=== PATIENT | male | born 1980 | race Caucasian/White ===

== ENCOUNTER 2016-10-22 10:54 | Inpatient (IN) | payer MEDICAID ==
[2016-10-22 12:07] LABS: Hematocrit 45 % (42-52); Hemoglobin 15.6 g/dl (14.0-18.0); Mean Corpuscular HGB Conc 35 g/dl (31-36); Mean Corpuscular Hemoglobin 34 pg (27-31); Mean Corpuscular Volume 98 fL (80-94); Mean Platelet Volume 8 um3 (7.4-10.4); Red Blood Count 4.58 10^6/ul (4.0-5.4); Red Cell Distribution Width 12 % (10.5-15); White Blood Count 3.7 10^3/ul (3.5-10.8)
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
[2016-10-22 12:26] LABS: ALT 238 U/L (7-52); AST 341 U/L (13-39); Albumin 4.2 g/dL (3.2-5.2); Alkaline Phosphatase 149 U/L (34-104); Anion Gap 11 mmol/L (2-11); BUN/Creatinine Ratio 11.8 (8-20); Blood Urea Nitrogen 6 mg/dL (6-24); CO2 Carbon Dioxide 24 mmol/L (22-32); Calcium 9.1 mg/dL (8.6-10.3); Chloride 102 mmol/L (101-111); EGFR African American 239.3 (>60); Globulin 3.1 g/dL (2-4); Glucose 106 mg/dL (70-100); Potassium 3.7 mmol/L (3.5-5.0); Sodium 137 mmol/L (133-145); Total Protein 7.3 g/dL (6.4-8.9)
[2016-10-22 12:48] LABS: Acetaminophen < 15 mcg/mL; Alcohol 256 mg/dL (<10); Salicylate < 2.50 mg/dL (<30)
[2016-10-22 12:58] LABS: TSH (Thyroid Stimulating Horm) 4.63 mcIU/mL (0.34-5.60)
[2016-10-22 16:10] LABS: Vitamin B12 640 pg/mL (180-914)
[2016-10-22] MEDS ORDERED: chlorproMAZINE TAB* 100 MG PO PRN (22:25)
[2016-10-22] MEDS ORDERED: Al Hydrox/Mg Hydrox/Simet LIQ* 30 ML UDC PO PRN (22:26)
[2016-10-22] MEDS ORDERED: Acetaminophen TAB* 325 MG PO PRN (22:26)
[2016-10-23] MEDS: Vitamin THERAPEUTIC TAB PO SCH (09:44)
[2016-10-23] MEDS: Folic Acid TAB* 1 MG PO SCH (09:44)
[2016-10-23] MEDS: Thiamine TAB* 100 MG TAB PO SCH (09:44)
[2016-10-23] MEDS ORDERED: LORazepam IM* PER WAM PARAMETERS IM SCH (16:00)
[2016-10-23] MEDS ORDERED: LORazepam TAB(*) WAM SCALE 0-6 MG PO SCH (16:00)
[2016-10-24] MEDS: Folic Acid TAB* 1 MG PO SCH (09:22)
[2016-10-24] MEDS: Vitamin THERAPEUTIC TAB PO SCH (09:22)
[2016-10-24] MEDS: Thiamine TAB* 100 MG TAB PO SCH (09:22)
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
[2016-10-25 00:46] LABS: Whole Blood Vitamin B1 Level 144 nmol/L (70-180)
[2016-10-25] MEDS: Folic Acid TAB* 1 MG PO SCH (09:37)
[2016-10-25] MEDS: Vitamin THERAPEUTIC TAB PO SCH (09:37)
[2016-10-25] MEDS: Thiamine TAB* 100 MG TAB PO SCH (09:37)
--- NOTE | 2016-10-25 11:09 | PN ---
Subjective - Subjective Service Type: 16280 [facility] care 15 min low complexity Subjective: Spoke with SW, Socorro Guadalupe, who in turn had communication with the patient's family. They are alleging a number of concerns including the presence of guns, knives and a fashioned rope noose at Julians house, which is also described to be essentially uninhabitable due to squalor and stench. The patient came to stay at his parents back in September due to his own complaints of physical weakness and the unsafe conditions of his home. They also described the patient being up all night, often screaming at the television with apparent ideas of reference, and sleeping during the day. They found several large, empty alcohol bottles in his room, and indicate that he will go days without eating anything other than some page tomatoes. He will often complain to them about bloody dreams and nightmares, which he describes to them in vivid, frightening detail. He has made allegations that computer hackers are persecuting him and tampering with his home and car. They found blood in his bathroom that he could not explain. The patient's financial statements, which are available as he is dependent on his father, show that he purchases alcohol frequently. He continues to have extensive delusions about a girlfriend with whom he broke up with over 4 years ago. An example of his incapacity, according to family, is that he has no refrigerator in his house, insisting that he's waiting for the ex-girlfriend to pick a color for the appliance. When confronted about these accounts the patient is defensive, interuptive and argumentative, showing no insight into his own functional limitations or the severity of his situation. "They're lying about me. I'll never forgive them!" He remains hyperverbal and hypergraphic, dishevelled and undernourished. Objective - Appearance Appearance: Thin Framed Dysmorphic Features: No Hygiene: Normal Grooming: Disheveled - Behavior Psychomotor Activities: Normal Exhibits Abnormal Movement: No - Attitude and Relatedness Attitude and Relatedness: Psychotically Related Eye Contact: Good - Speech Quality: Pressured Latencies: Short Quantity: Copious - Mood Patient's Decription of Mood: "Sad" - Affect Observed Affect: Labile Affect Consistent with: Dysphoria - Thought Process Patient's Thought Process: Tangential Thought Content: Yes Paranoid Ideation, No Passive Wish, No Suicidal Planning, No Homicidal Ideation - Sensorium Experiencing Hallucinations: No, Sensorium is Clear Type of Hallucinations: Visual: No, Auditory: No, Command: No - Level of Consciousness Level of Consciousness: Agitated Orientation: Yes Intact, Yes Orientated to Time, Yes Orientated to Place, Yes Orientated to Person - Impulse Control Impulse Control: Poor - Insight and Judgement Insight and Judgement: Impaired - Group Participation Particating in Group Activities: No - Medication Management Medication Management Adherence: No Assessment - Assessment Merits Inpatient Hospitalization: For Immediate Safety, For Stabilization Inpatient DSM-IV Dx: Unspecified Psychotic DO Clinical Impression: 35 y.o. single, white male with a history of psychosis and affective problems who arrives via EMS after his parents called 911 due to his paranoia, agitation and significant lack of self care. Plan - Plan Treatment Plan: Name: David HOPE Birthdate: 1980 [id number] The patient is refusing to consider antipsychotic medication. We will invite the family to come in for a family meeting and see if confrontation can't improve his insight and judgment related to accepting treatment. Continued Medication Management: Consider Medication Medications: Current Medications Acetaminophen (Tylenol Tab*) 650 mg PO Q4H PRN PRN Reason: PAIN Al Hydrox/Mg Hydrox/Simethicone (Maalox Plus*) 30 ml PO Q2H PRN PRN Reason: GASTRIC DISTRESS Chlorpromazine HCl (Thorazine Tab*) 100 mg PO Q2H PRN PRN Reason: AGITAION Folic Acid (Folvite Tab*) 1 mg PO DAILY [facility] Last Admin: 10/25/16 09:37 Dose: Not Given Lorazepam (Ativan Inj*) 0 - 6 mg IM .PER [facility] PRN Reason: Protocol Lorazepam (Ativan Tab(*)) 0 - 6 mg PO .[facility] PRN Reason: Protocol Multivitamins (Theragran Tab*) 1 tab PO DAILY [facility] Last Admin: 10/25/16 09:37 Dose: Not Given Thiamine HCl (Vitamin B-1 Tab*) 100 mg PO DAILY [facility] Last Admin: 10/25/16 09:37 Dose: Not Given - Discharge Plan Discharge Plan: Inpatient Hospitalization
[2016-10-26] MEDS: Vitamin THERAPEUTIC TAB PO SCH (10:07)
[2016-10-26] MEDS: Thiamine TAB* 100 MG TAB PO SCH (10:07)
[2016-10-26] MEDS: Folic Acid TAB* 1 MG PO SCH (10:07)
--- NOTE | 2016-10-26 13:34 | PN ---
Subjective - Subjective Service Type: 66058 [facility] care 15 min low complexity Subjective: I reviewed Dr Urias's H&P and sign out. I reviewed staff notes since Friday afternoon. He slept 5+ hrs last night. Staff note selective eating, poor attention to hygiene, and he has been refusing medications. He had a difficult time briefly reviewing events leading to hospitalization. He talked about "proximate and ultimate" causes and went into a lengthy review of events related to living with his parents for the last 6 weeks. His visit was extended due to being "snowed in," feeling sick, and struggling with mental health issues (down mood). Unprompted, he repeatedly talks about the amount of cooking he did while living with them. He notes being "polite but honest" with them and expressing frustrations by yelling to them in the middle of the night after having "one bad day" (due to down mood, poor sleep). He acknowledges that his views may have been expressed in an "inappropriate" way. He feels "blindsided" by list of concerns parents recently reviewed with him. He describes a past dx of cyclothymia and having "intense reactions." He believes his parents have "over reacted" and have been lying to Dr Urias. Today his mood is "bored" but he is "adjusting." He denies acute depression or anxiety. He reports "the best" sleep last night. He ate breakfast and lunch. He denies physical complaints. He denies symptoms of psychosis. He denies SI or thoughts of self-harm. He denies thoughts of harming others. He expressed frustration about hospitalization. Objective - Appearance Appearance: Thin Framed - long hair and jesus. Dysmorphic Features: No Grooming: Disheveled - Behavior Psychomotor Activities: Abnormal-Increased - appears tremulous Exhibits Abnormal Movement: No - Attitude and Relatedness Attitude and Relatedness: Needy Eye Contact: Good - Speech Quality: Pressured Latencies: Short Quantity: Copious - Mood Patient's Decription of Mood: "Fine" - Affect Observed Affect: Fair Affect Consistent with: Dysphoria - blunted - Thought Process Patient's Thought Process: Tangential, Over Inclusive - mild disorganization Thought Content: Yes Paranoid Ideation, No Passive Wish, No Suicidal Planning, No Homicidal Ideation - Sensorium Experiencing Hallucinations: No, Sensorium is Clear - Level of Consciousness Level of Consciousness: Alert - Impulse Control Impulse Control: Tenuous - Insight and Judgement Insight and Judgement: Poor - Medication Management Medication Management Adherence: No Assessment - Assessment Merits Inpatient Hospitalization: Diagnosis Determination, To Initiate Treatment , For Ongoing Evaluation, Consolidate Improvements, For Discharge Planning, Pending Safe DC Plan Inpatient DSM-IV Dx: Unspecified Psychotic DO. Alcohol use d/o Clinical Impression: 35yo male with a hx of psychosis, alcohol use d/o admitted due to acute psychosis and poor self-care. To continue to monitor. Plan - Plan Treatment Plan: Name: David HOPE Birthdate: 1980 [id number] - to continue WAM. To consider d/cing if he doesn't receive any Ativan in the next 24 hrs. - to continue to monitor Medications: Current Medications Acetaminophen (Tylenol Tab*) 650 mg PO Q4H PRN PRN Reason: PAIN Al Hydrox/Mg Hydrox/Simethicone (Maalox Plus*) 30 ml PO Q2H PRN PRN Reason: GASTRIC DISTRESS Chlorpromazine HCl (Thorazine Tab*) 100 mg PO Q2H PRN PRN Reason: AGITAION Folic Acid (Folvite Tab*) 1 mg PO DAILY [facility] Last Admin: 10/26/16 10:07 Dose: Not Given Lorazepam (Ativan Inj*) 0 - 6 mg IM .PER [facility] PRN Reason: Protocol Lorazepam (Ativan Tab(*)) 0 - 6 mg PO .PER [facility] PRN Reason: Protocol Multivitamins (Theragran Tab*) 1 tab PO DAILY [facility] Last Admin: 10/26/16 10:07 Dose: Not Given Thiamine HCl (Vitamin B-1 Tab*) 100 mg PO DAILY [facility] Last Admin: 10/26/16 10:07 Dose: Not Given
[2016-10-27] MEDS: Thiamine TAB* 100 MG TAB PO SCH (09:53)
[2016-10-27] MEDS: Folic Acid TAB* 1 MG PO SCH (09:53)
[2016-10-27] MEDS: Vitamin THERAPEUTIC TAB PO SCH (09:54)
[2016-10-28] MEDS: Thiamine TAB* 100 MG TAB PO SCH (10:50)
[2016-10-28] MEDS: Folic Acid TAB* 1 MG PO SCH (10:50)
[2016-10-28] MEDS: Vitamin THERAPEUTIC TAB PO SCH (10:50)
--- NOTE | 2016-10-28 12:02 | PN ---
[facility]: Group Therapy Note - Service Type Service Type: 63909 Group Psychotherapy - Cognitive Behavioral Group Therapy ( CBT):Patient was attentive and participatory in CBT programming this morning, and remained in good behavioral control. Patient expressed positive insights regarding relevant treatment interventions and goals.
--- NOTE | 2016-10-28 14:53 | PN ---
Subjective - Subjective Service Type: [id number] Hosp care 15 min low complexity Subjective: Patient continues to be hyperverbal and argumentative, attempting to justify the bizarre condition of his apartment and his abnormal behaviors as extensions of his "artistic" persona. He is frequently observed talking to unseen people and I can hear him in his room talking to himself. The patient refuses to consider neuroleptic therapy, stating that his parents are "the crazy ones." Objective - Appearance Appearance: Thin Framed Dysmorphic Features: No Hygiene: Normal Grooming: Fairly Well Kept - Behavior Psychomotor Activities: Normal Exhibits Abnormal Movement: No - Attitude and Relatedness Attitude and Relatedness: Psychotically Related Eye Contact: Good - Speech Quality: Pressured Latencies: Short Quantity: Copious - Mood Patient's Decription of Mood: "Fine" - Affect Observed Affect: Tense Affect Consistent with: Dysphoria - Thought Process Patient's Thought Process: Tangential Thought Content: Yes Paranoid Ideation, No Passive Wish, No Suicidal Planning, No Homicidal Ideation - Sensorium Experiencing Hallucinations: Yes Type of Hallucinations: Visual: No, Auditory: Yes, Command: No - Level of Consciousness Level of Consciousness: Alert Orientation: Yes Intact, Yes Orientated to Time, Yes Orientated to Place, Yes Orientated to Person - Impulse Control Impulse Control: Poor - Insight and Judgement Insight and Judgement: Impaired - Group Participation Particating in Group Activities: Yes - Medication Management Medication Management Adherence: No Assessment - Assessment Merits Inpatient Hospitalization: For Immediate Safety, For Stabilization Inpatient DSM-IV Dx: Unspecified Psychotic DO. Alcohol use d/o Clinical Impression: 35 y.o. single, white male with a history of psychosis and affective problems who arrives via EMS after his parents called 911 due to his paranoia, agitation and significant lack of self care. Plan - Plan Treatment Plan: Name: David HOPE Birthdate: 1980 [id number] The patient is still refusing to consider antipsychotic medication. His family has brought pictures of his apartment displaying various homicidal and suicidal statements scrawled in marker, paint and even blood. We will initiate risperidone 1mg PO qhs and pursue TOO. Continued Medication Management: Start Medication Medications: Current Medications Acetaminophen (Tylenol Tab*) 650 mg PO Q4H PRN PRN Reason: PAIN Al Hydrox/Mg Hydrox/Simethicone (Maalox Plus*) 30 ml PO Q2H PRN PRN Reason: GASTRIC DISTRESS Chlorpromazine HCl (Thorazine Tab*) 100 mg PO Q2H PRN PRN Reason: AGITAION Folic Acid (Folvite Tab*) 1 mg PO DAILY [facility] Last Admin: 10/28/16 10:50 Dose: Not Given Multivitamins (Theragran Tab*) 1 tab PO DAILY [facility] Last Admin: 10/28/16 10:50 Dose: Not Given Risperidone (Risperdal*) 1 mg PO BEDTIME [facility] Thiamine HCl (Vitamin B-1 Tab*) 100 mg PO DAILY [facility] Last Admin: 10/28/16 10:50 Dose: Not Given - Discharge Plan Discharge Plan: Inpatient Hospitalization
[2016-10-28] MEDS: risperiDONE TAB* 1 MG PO SCH (23:53)
[2016-10-29] MEDS: Thiamine TAB* 100 MG TAB PO SCH (10:40)
[2016-10-29] MEDS: Vitamin THERAPEUTIC TAB PO SCH (10:40)
[2016-10-29] MEDS: Folic Acid TAB* 1 MG PO SCH (10:40)
--- NOTE | 2016-10-29 11:03 | PN ---
Subjective - Subjective Service Type: 57310 Hosp care 15 min low complexity Subjective: The patient continues with rambling, abstract speech about what seem like irrelevant topic to me, such as forest ecology and his relationship with a former girlfriend, whom he remains delusional about. The patient is refusing meds and minimizes the concerns of his family. I do notify him that the team has decided to take him to court but he insists the photos of his house are inadmissable because his family did not have a warrant when they took them. The team received a phone call from Raul's mother alerting us to his frequent headaches prior to admission, however, the patient denies this and refuses the offer of neuroimaging. Objective - Appearance Appearance: Thin Framed Dysmorphic Features: No Hygiene: Normal Grooming: Fairly Well Kept - Behavior Psychomotor Activities: Normal Exhibits Abnormal Movement: No - Attitude and Relatedness Attitude and Relatedness: Psychotically Related Eye Contact: Good - Speech Quality: Pressured Latencies: Short Quantity: Copious - Mood Patient's Decription of Mood: "Fine" - Affect Observed Affect: Tense Affect Consistent with: Dysphoria - Thought Process Patient's Thought Process: Tangential Thought Content: Yes Paranoid Ideation, No Passive Wish, No Suicidal Planning, No Homicidal Ideation - Sensorium Experiencing Hallucinations: Yes Type of Hallucinations: Visual: No, Auditory: Yes, Command: No - Level of Consciousness Level of Consciousness: Alert Orientation: Yes Intact, Yes Orientated to Time, Yes Orientated to Place, Yes Orientated to Person - Impulse Control Impulse Control: Poor - Insight and Judgement Insight and Judgement: Impaired - Group Participation Particating in Group Activities: Yes - Medication Management Medication Management Adherence: No Assessment - Assessment Merits Inpatient Hospitalization: For Immediate Safety, For Stabilization Inpatient DSM-IV Dx: Unspecified Psychotic DO. Alcohol use d/o Clinical Impression: 35 y.o. single, white male with a history of psychosis and affective problems who arrives via EMS after his parents called 911 due to his paranoia, agitation and significant lack of self care. Plan - Plan Treatment Plan: Name: David HOPE Birthdate: 1980 [id number] The patient is refusing antipsychotic meds despite the indications that he is psychotic and unable to function safely in the community. We have initiated the process to seek T.O.O. and the patient is now aware of this. Medications: Current Medications Acetaminophen (Tylenol Tab*) 650 mg PO Q4H PRN PRN Reason: PAIN Al Hydrox/Mg Hydrox/Simethicone (Maalox Plus*) 30 ml PO Q2H PRN PRN Reason: GASTRIC DISTRESS Chlorpromazine HCl (Thorazine Tab*) 100 mg PO Q2H PRN PRN Reason: AGITAION Folic Acid (Folvite Tab*) 1 mg PO DAILY [facility] Last Admin: 10/29/16 10:40 Dose: Not Given Multivitamins (Theragran Tab*) 1 tab PO DAILY [facility] Last Admin: 10/29/16 10:40 Dose: Not Given Risperidone (Risperdal*) 1 mg PO BEDTIME [facility] Last Admin: 10/28/16 23:53 Dose: Not Given Thiamine HCl (Vitamin B-1 Tab*) 100 mg PO DAILY [facility] Last Admin: 10/29/16 10:40 Dose: Not Given
--- NOTE | 2016-10-29 13:44 | PN ---
MHU: Group Therapy Note - Service Type Service Type: [id number] Group Psychotherapy - Cognitive Behavioral Group Therapy ( CBT):Patient was attentive and participatory in CBT programming this morning, and remained in good behavioral control. Patient expressed positive insights regarding relevant treatment interventions and goals.
[2016-10-29] MEDS: risperiDONE TAB* 1 MG PO SCH (20:17)
[2016-10-30] MEDS: Folic Acid TAB* 1 MG PO SCH (08:07)
[2016-10-30] MEDS: Thiamine TAB* 100 MG TAB PO SCH (08:07)
[2016-10-30] MEDS: Vitamin THERAPEUTIC TAB PO SCH (08:07)
--- NOTE | 2016-10-30 11:50 | PN ---
MHU: Group Therapy Note - Service Type Service Type: [id number] Group Psychotherapy - Cognitive Behavioral Group Therapy ( CBT):Patient was attentive and participatory in CBT programming this morning, and remained in good behavioral control. Patient expressed positive insights regarding relevant treatment interventions and goals.
--- NOTE | 2016-10-30 13:43 | PN ---
Subjective - Subjective Service Type: 25316 Hosp care 35 min high complexity Subjective: The patient speaks at length today about his philosophical and aesthetic attitudes about taking psychotropic medications and makes references to several abstract concepts such as creationism versus darwinism. The thrust of his argument is that obligating him to take medications against his will, as through a court proceeding, would be analogous to some sort of forced mu-ism conversion, like, say, from atheism to Gnosticist. He does not deny that he is suffering and has functional impairment, but feels that these attributes are unique to himself and an antipsychotic medication would be inconsistent with his world view. He assures me that he is neither an acute harm to himself nor his family and minimizes the disturbing suicidal and homicidal statements scrawled on the merchant of his home. The patient continues to be observed talking to himself. Objective - Appearance Appearance: Thin Framed Dysmorphic Features: No Hygiene: Normal Grooming: Fairly Well Kept - Behavior Psychomotor Activities: Normal Exhibits Abnormal Movement: No - Attitude and Relatedness Attitude and Relatedness: Argumentative Eye Contact: Good - Speech Quality: Pressured Latencies: Short Quantity: Copious - Mood Patient's Decription of Mood: "Upset" - Affect Observed Affect: Constricted Affect Consistent with: Dysphoria - Thought Process Patient's Thought Process: Tangential Thought Content: Yes Paranoid Ideation, No Passive Wish, No Suicidal Planning, No Homicidal Ideation - Sensorium Experiencing Hallucinations: Yes Type of Hallucinations: Visual: No, Auditory: Yes, Command: No - Level of Consciousness Level of Consciousness: Alert Orientation: Yes Intact, Yes Orientated to Time, Yes Orientated to Place, Yes Orientated to Person - Impulse Control Impulse Control: Poor - Insight and Judgement Insight and Judgement: Impaired - Group Participation Particating in Group Activities: Yes - Medication Management Medication Management Adherence: No Assessment - Assessment Merits Inpatient Hospitalization: For Immediate Safety, For Stabilization Inpatient DSM-IV Dx: Unspecified Psychotic DO. Alcohol use d/o Clinical Impression: 35 y.o. single, white male with a history of psychosis and affective problems who arrives via EMS after his parents called 911 due to his paranoia, agitation and significant lack of self care. Plan - Plan Treatment Plan: Name: David HOPE Birthdate: 1980 [id number] The patient is refusing antipsychotic meds despite the indications that he is psychotic and unable to function safely in the community. We have initiated the process to seek T.O.O. and await a scheduled court date. Continued Medication Management: Start Medication Medications: Current Medications Acetaminophen (Tylenol Tab*) 650 mg PO Q4H PRN PRN Reason: PAIN Al Hydrox/Mg Hydrox/Simethicone (Maalox Plus*) 30 ml PO Q2H PRN PRN Reason: GASTRIC DISTRESS Chlorpromazine HCl (Thorazine Tab*) 100 mg PO Q2H PRN PRN Reason: AGITAION Folic Acid (Folvite Tab*) 1 mg PO DAILY [facility] Last Admin: 10/30/16 08:07 Dose: Not Given Multivitamins (Theragran Tab*) 1 tab PO DAILY [facility] Last Admin: 10/30/16 08:07 Dose: Not Given Risperidone (Risperdal*) 1 mg PO BEDTIME [facility] Last Admin: 10/29/16 20:17 Dose: Not Given Thiamine HCl (Vitamin B-1 Tab*) 100 mg PO DAILY [facility] Last Admin: 10/30/16 08:07 Dose: Not Given - Discharge Plan Discharge Plan: Inpatient Hospitalization
[2016-10-30] MEDS: risperiDONE TAB* 1 MG PO SCH (23:25)
[2016-10-31] MEDS: Folic Acid TAB* 1 MG PO SCH (09:59)
[2016-10-31] MEDS: Thiamine TAB* 100 MG TAB PO SCH (09:59)
[2016-10-31] MEDS: Vitamin THERAPEUTIC TAB PO SCH (10:00)
--- NOTE | 2016-10-31 10:33 | PN ---
Subjective - Subjective Service Type: [id number] Hosp care 15 min low complexity Subjective: Raul remains non-adherent with treatment and uninsightful. He continues to be observed responding to internal stimuli, talking and laughing to himself. Both his speech, and the scrawlings in his journal, are rambling and overproductive. Today the patient presents as hyperverbal and it is difficult to disengage with him after absorbing his long dissertation on why he is not appropriate for involuntary psychiatric treatment. Objective - Appearance Appearance: Thin Framed Dysmorphic Features: No Hygiene: Normal Grooming: Disheveled - Behavior Psychomotor Activities: Normal Exhibits Abnormal Movement: No - Attitude and Relatedness Attitude and Relatedness: Argumentative Eye Contact: Poor - Speech Quality: Pressured Latencies: Short Quantity: Copious - Mood Patient's Decription of Mood: "Okay" - Affect Observed Affect: Tense Affect Consistent with: Dysphoria - Thought Process Patient's Thought Process: Tangential Thought Content: Yes Paranoid Ideation, No Passive Wish, No Suicidal Planning, No Homicidal Ideation - Sensorium Experiencing Hallucinations: Yes Type of Hallucinations: Visual: No, Auditory: Yes, Command: No - Level of Consciousness Level of Consciousness: Alert Orientation: Yes Intact, Yes Orientated to Time, Yes Orientated to Place, Yes Orientated to Person - Impulse Control Impulse Control: Poor - Insight and Judgement Insight and Judgement: Impaired - Group Participation Particating in Group Activities: Yes - Medication Management Medication Management Adherence: No Assessment - Assessment Merits Inpatient Hospitalization: For Immediate Safety, For Stabilization Inpatient DSM-IV Dx: Unspecified Psychotic DO. Alcohol use d/o Clinical Impression: 35 y.o. single, white male with a history of psychosis and affective problems who arrives via EMS after his parents called 911 due to his paranoia, agitation and significant lack of self care. Plan - Plan Treatment Plan: Name: Davdi HOPE Birthdate: 1980 [id number] The patient is refusing antipsychotic meds despite the indications that he is psychotic and unable to function safely in the community. We have initiated the process to seek T.O.O. and await a scheduled court date. Continued Medication Management: Start Medication Medications: Current Medications Acetaminophen (Tylenol Tab*) 650 mg PO Q4H PRN PRN Reason: PAIN Al Hydrox/Mg Hydrox/Simethicone (Maalox Plus*) 30 ml PO Q2H PRN PRN Reason: GASTRIC DISTRESS Chlorpromazine HCl (Thorazine Tab*) 100 mg PO Q2H PRN PRN Reason: AGITAION Folic Acid (Folvite Tab*) 1 mg PO DAILY [facility] Last Admin: 10/31/16 09:59 Dose: Not Given Multivitamins (Theragran Tab*) 1 tab PO DAILY [facility] Last Admin: 10/31/16 10:00 Dose: Not Given Risperidone (Risperdal*) 1 mg PO BEDTIME [facility] Last Admin: 10/30/16 23:25 Dose: Not Given Thiamine HCl (Vitamin B-1 Tab*) 100 mg PO DAILY [facility] Last Admin: 10/31/16 09:59 Dose: Not Given - Discharge Plan Discharge Plan: Inpatient Hospitalization
--- NOTE | 2016-10-31 11:52 | PN ---
MHU: Group Therapy Note - Service Type Service Type: [id number] Group Psychotherapy - Cognitive Behavioral Group Therapy ( CBT):Patient was attentive and participatory in CBT programming this morning, and remained in good behavioral control. Patient expressed positive insights regarding relevant treatment interventions and goals.
[2016-10-31] MEDS: risperiDONE TAB* 1 MG PO SCH (20:56)
[2016-11-01] MEDS: Folic Acid TAB* 1 MG PO SCH (10:37)
[2016-11-01] MEDS: Vitamin THERAPEUTIC TAB PO SCH (10:37)
[2016-11-01] MEDS: Thiamine TAB* 100 MG TAB PO SCH (10:37)
--- NOTE | 2016-11-01 14:12 | PN ---
Subjective - Subjective Service Type: [id number] Hosp care 25 min moderate complexity Subjective: The patient continues today with his verbose, intellectualized, pleading arguments against forced antipsychotic treatment. He is hyperverbal and frequently interupts me during the few times that I do try to raise concerns or contradict something he has said. The patient is still observed talking and laughing to himself on the unit, although he does appear to be eating and drinking well. He has no insight and does not believe he has any mental illness. Objective - Appearance Appearance: Thin Framed Dysmorphic Features: No Hygiene: Normal Grooming: Fairly Well Kept - Behavior Psychomotor Activities: Normal Exhibits Abnormal Movement: No - Attitude and Relatedness Attitude and Relatedness: Argumentative Eye Contact: Fair - Speech Quality: Pressured Latencies: Short Quantity: Copious - Mood Patient's Decription of Mood: "Upset" - Affect Observed Affect: Depressed Affect Consistent with: Dysphoria - Thought Process Patient's Thought Process: Tangential Thought Content: Yes Paranoid Ideation, No Passive Wish, No Suicidal Planning, No Homicidal Ideation - Sensorium Experiencing Hallucinations: Yes Type of Hallucinations: Visual: No, Auditory: Yes, Command: No - Level of Consciousness Level of Consciousness: Alert Orientation: Yes Intact, Yes Orientated to Time, Yes Orientated to Place, Yes Orientated to Person - Impulse Control Impulse Control: Poor - Insight and Judgement Insight and Judgement: Impaired - Group Participation Particating in Group Activities: Yes - Medication Management Medication Management Adherence: No Assessment - Assessment Merits Inpatient Hospitalization: For Immediate Safety, For Stabilization Inpatient DSM-IV Dx: Unspecified Psychotic DO. Alcohol use d/o Clinical Impression: 35 y.o. single, white male with a history of psychosis and affective problems who arrives via EMS after his parents called 911 due to his paranoia, agitation and significant lack of self care. Plan - Plan Treatment Plan: Name: David HOPE Birthdate: 1980 [id number] The patient is refusing antipsychotic meds despite the indications that he is psychotic and unable to function safely in the community. We have initiated the process to seek T.O.O. and await a scheduled court date. Continued Medication Management: Start Medication Medications: Current Medications Acetaminophen (Tylenol Tab*) 650 mg PO Q4H PRN PRN Reason: PAIN Al Hydrox/Mg Hydrox/Simethicone (Maalox Plus*) 30 ml PO Q2H PRN PRN Reason: GASTRIC DISTRESS Chlorpromazine HCl (Thorazine Tab*) 100 mg PO Q2H PRN PRN Reason: AGITAION Folic Acid (Folvite Tab*) 1 mg PO DAILY [facility] Last Admin: 11/01/16 10:37 Dose: Not Given Multivitamins (Theragran Tab*) 1 tab PO DAILY [facility] Last Admin: 11/01/16 10:37 Dose: Not Given Risperidone (Risperdal*) 1 mg PO BEDTIME [facility] Last Admin: 10/31/16 20:56 Dose: Not Given Thiamine HCl (Vitamin B-1 Tab*) 100 mg PO DAILY [facility] Last Admin: 11/01/16 10:37 Dose: Not Given - Discharge Plan Discharge Plan: Inpatient Hospitalization
[2016-11-01] MEDS: risperiDONE TAB* 1 MG PO SCH (20:51)
[2016-11-02] MEDS: Folic Acid TAB* 1 MG PO SCH (10:21)
[2016-11-02] MEDS: Vitamin THERAPEUTIC TAB PO SCH (10:21)
[2016-11-02] MEDS: Thiamine TAB* 100 MG TAB PO SCH (10:21)
[2016-11-02] MEDS: risperiDONE TAB* 1 MG PO SCH (21:33)
[2016-11-03] MEDS: Thiamine TAB* 100 MG TAB PO SCH (11:21)
[2016-11-03] MEDS: Vitamin THERAPEUTIC TAB PO SCH (11:21)
[2016-11-03] MEDS: Folic Acid TAB* 1 MG PO SCH (11:21)
[2016-11-03] MEDS: risperiDONE TAB* 1 MG PO SCH (20:35)
[2016-11-04] MEDS: Vitamin THERAPEUTIC TAB PO SCH (10:09)
[2016-11-04] MEDS: Thiamine TAB* 100 MG TAB PO SCH (10:09)
[2016-11-04] MEDS: Folic Acid TAB* 1 MG PO SCH (10:09)
--- NOTE | 2016-11-04 11:11 | PN ---
MHU: Group Therapy Note - Service Type Service Type: [id number] Group Psychotherapy - Cognitive Behavioral Group Therapy ( CBT):Patient was attentive and participatory in CBT programming this morning, and remained in good behavioral control. Patient expressed positive insights regarding relevant treatment interventions and goals.
--- NOTE | 2016-11-04 11:22 | PN ---
Subjective - Subjective Service Type: [id number] Hosp care 15 min low complexity Subjective: Raul expresses regret over need for court hearing. Says he is not categorically against medication but wants the process to go slowly and prefers to take care if it himself. Objective - Appearance Appearance: Thin Framed Hygiene: Normal Grooming: Disheveled - Behavior Psychomotor Activities: Normal - Attitude and Relatedness Attitude and Relatedness: Guarded - Speech Quality: Unpressured Latencies: Normal Quantity: Appropriate - Mood Patient's Decription of Mood: "Anxious" - Affect Observed Affect: Tense Affect Consistent with: Dysphoria - Thought Process Patient's Thought Process: Over Inclusive Thought Content: No Passive Wish, No Suicidal Planning, No Homicidal Ideation, No Paranoid Ideation - Sensorium Experiencing Hallucinations: No, Sensorium is Clear - Level of Consciousness Level of Consciousness: Alert - Impulse Control Impulse Control: Intact - Insight and Judgement Insight and Judgement: Poor Assessment - Assessment Merits Inpatient Hospitalization: For Immediate Safety, For Stabilization, To Initiate Treatment, For Ongoing Evaluation, Pending Safe DC Plan Inpatient DSM-IV Dx: Unspecified Psychotic DO. Alcohol use d/o Clinical Impression: 35 y.o. male with a history of psychosis, psychiatric admission, self harm and violence. He was admitted after coming to the ED by EMS after his parents called 911 due concern over his paranoia, agitation and significant lack of self care. Additional risk concerns were reported around writings of suicidal and homicidal content. Stable behaviorally here. Has poor insight into his situation and treatment needs, and has refused indicated medication. [facility] is seeking court order for medcations. Plan - Plan Treatment Plan: Name: David HOPE Birthdate: 1980 [id number] Continued Medication Management: Start Medication Medications: Current Medications Acetaminophen (Tylenol Tab*) 650 mg PO Q4H PRN PRN Reason: PAIN Al Hydrox/Mg Hydrox/Simethicone (Maalox Plus*) 30 ml PO Q2H PRN PRN Reason: GASTRIC DISTRESS Chlorpromazine HCl (Thorazine Tab*) 100 mg PO Q2H PRN PRN Reason: AGITAION Folic Acid (Folvite Tab*) 1 mg PO DAILY [facility] Last Admin: 11/04/16 10:09 Dose: Not Given Multivitamins (Theragran Tab*) 1 tab PO DAILY [facility] Last Admin: 11/04/16 10:09 Dose: Not Given Risperidone (Risperdal*) 1 mg PO BEDTIME [facility] Last Admin: 11/03/16 20:35 Dose: Not Given Thiamine HCl (Vitamin B-1 Tab*) 100 mg PO DAILY [facility] Last Admin: 11/04/16 10:09 Dose: Not Given - Discharge Plan Discharge Plan: Outpatient Follow Up
[2016-11-04] MEDS: risperiDONE TAB* 1 MG PO SCH (22:13)
[2016-11-05] MEDS: Thiamine TAB* 100 MG TAB PO SCH (11:01)
[2016-11-05] MEDS: Folic Acid TAB* 1 MG PO SCH (11:01)
[2016-11-05] MEDS: Vitamin THERAPEUTIC TAB PO SCH (11:02)
--- NOTE | 2016-11-05 11:24 | PN ---
MHU: Group Therapy Note - Service Type Service Type: [id number] Group Psychotherapy - Cognitive Behavioral Group Therapy ( CBT):Patient was attentive and participatory in CBT programming this morning, and remained in good behavioral control. Patient expressed positive insights regarding relevant treatment interventions and goals. Raul continues to exhibit poor insight regarding presenting problems and impairment in adaptive functioning prior to his admission.
--- NOTE | 2016-11-05 12:39 | PN ---
Subjective - Subjective Service Type: 90737 Hosp care 15 min low complexity Subjective: The patient indicates that he feels the T.O.O. affidavit submitted by the hospital is factually incorrect and that my justifications for medicating him against his will are "absurd." He is observed talking to himself in the day area. Objective - Appearance Appearance: Thin Framed Dysmorphic Features: No Hygiene: Normal Grooming: Disheveled - Behavior Psychomotor Activities: Normal Exhibits Abnormal Movement: No - Attitude and Relatedness Attitude and Relatedness: Psychotically Related Eye Contact: Poor - Speech Quality: Pressured Latencies: Short Quantity: Copious - Mood Patient's Decription of Mood: "Angry" - Affect Observed Affect: Expansive Affect Consistent with: Dysphoria - Thought Process Patient's Thought Process: Tangential Thought Content: Yes Paranoid Ideation, No Passive Wish, No Suicidal Planning, No Homicidal Ideation - Sensorium Experiencing Hallucinations: Yes Type of Hallucinations: Visual: Yes, Auditory: Yes, Command: No - Level of Consciousness Level of Consciousness: Alert Orientation: Yes Intact, Yes Orientated to Time, Yes Orientated to Place, Yes Orientated to Person - Impulse Control Impulse Control: Poor - Insight and Judgement Insight and Judgement: Impaired - Group Participation Particating in Group Activities: Yes - Medication Management Medication Management Adherence: No Assessment - Assessment Merits Inpatient Hospitalization: For Immediate Safety, For Stabilization Inpatient DSM-IV Dx: Unspecified Psychotic DO. Alcohol use d/o Clinical Impression: 35 y.o. single, white male with a history of psychosis and affective problems who arrives via EMS after his parents called 911 due to his paranoia, agitation and significant lack of self care. Plan - Plan Treatment Plan: Name: David HOPE Birthdate: 1980 [id number] The patient is refusing antipsychotic meds despite the indications that he is psychotic and unable to function safely in the community. We have initiated the process to seek T.O.O. and await court tomorrow (11/06) at 11:00. Continued Medication Management: Start Medication Medications: Current Medications Acetaminophen (Tylenol Tab*) 650 mg PO Q4H PRN PRN Reason: PAIN Al Hydrox/Mg Hydrox/Simethicone (Maalox Plus*) 30 ml PO Q2H PRN PRN Reason: GASTRIC DISTRESS Chlorpromazine HCl (Thorazine Tab*) 100 mg PO Q2H PRN PRN Reason: AGITAION Folic Acid (Folvite Tab*) 1 mg PO DAILY [facility] Last Admin: 11/05/16 11:01 Dose: Not Given Multivitamins (Theragran Tab*) 1 tab PO DAILY [facility] Last Admin: 11/05/16 11:02 Dose: Not Given Risperidone (Risperdal*) 1 mg PO BEDTIME [facility] Last Admin: 11/04/16 22:13 Dose: Not Given Thiamine HCl (Vitamin B-1 Tab*) 100 mg PO DAILY [facility] Last Admin: 11/05/16 11:01 Dose: Not Given - Discharge Plan Discharge Plan: Inpatient Hospitalization
[2016-11-05] MEDS: risperiDONE TAB* 1 MG PO SCH (20:50)
[2016-11-06] MEDS: Folic Acid TAB* 1 MG PO SCH (08:09)
[2016-11-06] MEDS: Thiamine TAB* 100 MG TAB PO SCH (08:09)
[2016-11-06] MEDS: Vitamin THERAPEUTIC TAB PO SCH (08:09)
--- NOTE | 2016-11-06 15:11 | PN ---
Subjective - Subjective Service Type: [id number] Hosp care 35 min high complexity Subjective: Patient seen after his T.O.O. court hearing, in which the hospital, supported by extensive testimony from his family, won the right to treat him involuntarily with psychotropic medications. The patient remains hyperverbal, overly rationalizing his concerning behaviors leading up to admission and uninsightful about how ill he is. The patient requests time to consider his options with respect to treatment and continues to make it clear that psychiatric medications are against his beliefs. Objective - Appearance Appearance: Thin Framed Dysmorphic Features: No Hygiene: Normal Grooming: Fairly Well Kept - Behavior Psychomotor Activities: Normal Exhibits Abnormal Movement: No - Attitude and Relatedness Attitude and Relatedness: Argumentative Eye Contact: Good - Speech Quality: Pressured Latencies: Short Quantity: Copious - Mood Patient's Decription of Mood: Disappointed - Affect Observed Affect: Depressed Affect Consistent with: Dysphoria - Thought Process Patient's Thought Process: Tangential Thought Content: Yes Paranoid Ideation, No Passive Wish, No Suicidal Planning, No Homicidal Ideation - Sensorium Experiencing Hallucinations: Yes Type of Hallucinations: Visual: No, Auditory: Yes, Command: No - Level of Consciousness Level of Consciousness: Alert Orientation: Yes Intact, Yes Orientated to Time, Yes Orientated to Place, Yes Orientated to Person - Impulse Control Impulse Control: Poor - Insight and Judgement Insight and Judgement: Impaired - Group Participation Particating in Group Activities: Yes - Medication Management Medication Management Adherence: No Assessment - Assessment Merits Inpatient Hospitalization: For Immediate Safety, For Stabilization Inpatient DSM-IV Dx: Unspecified Psychotic DO. Alcohol use d/o Clinical Impression: 35 y.o. single, white male with a history of psychosis and affective problems who arrives via EMS after his parents called 911 due to his paranoia, agitation and significant lack of self care. Plan - Plan Treatment Plan: Name: David HOPE Birthdate: 1980 [id number] The patient is refusing antipsychotic meds despite the indications that he is psychotic and unable to function safely in the community. We will initiate court-mandated antipsychotic treatment as soon as we receive relevant documents as signed by the bankruptcy judge. Continued Medication Management: Start Medication Medications: Current Medications Acetaminophen (Tylenol Tab*) 650 mg PO Q4H PRN PRN Reason: PAIN Al Hydrox/Mg Hydrox/Simethicone (Maalox Plus*) 30 ml PO Q2H PRN PRN Reason: GASTRIC DISTRESS Chlorpromazine HCl (Thorazine Tab*) 100 mg PO Q2H PRN PRN Reason: AGITAION Folic Acid (Folvite Tab*) 1 mg PO DAILY [facility] Last Admin: 11/06/16 08:09 Dose: Not Given Multivitamins (Theragran Tab*) 1 tab PO DAILY [facility] Last Admin: 11/06/16 08:09 Dose: Not Given Risperidone (Risperdal*) 1 mg PO BEDTIME [facility] Last Admin: 11/05/16 20:50 Dose: Not Given Thiamine HCl (Vitamin B-1 Tab*) 100 mg PO DAILY [facility] Last Admin: 11/06/16 08:09 Dose: Not Given - Discharge Plan Discharge Plan: Inpatient Hospitalization
[2016-11-06] MEDS: risperiDONE TAB* 1 MG PO SCH (21:10)
[2016-11-07 09:05] LABS: Albumin 3.9 g/dL (3.2-5.2); BUN/Creatinine Ratio 11.3 (8-20); Calcium 9.4 mg/dL (8.6-10.3); EGFR African American 162.4 (>60); EGFR Non-African American 126.3 (>60); Potassium 4.6 mmol/L (3.5-5.0); Total Bilirubin 0.5 mg/dL (0.2-1.0); Total Protein 6.9 g/dL (6.4-8.9)
[2016-11-07] MEDS: Vitamin THERAPEUTIC TAB PO SCH (09:43)
[2016-11-07] MEDS: Folic Acid TAB* 1 MG PO SCH (09:43)
[2016-11-07] MEDS: Thiamine TAB* 100 MG TAB PO SCH (09:43)
--- NOTE | 2016-11-07 12:26 | PN ---
Subjective - Subjective Service Type: [id number] Hosp care 35 min high complexity Subjective: The patient continues to object to mood stabilizer/antipsychotic treatment. He remains loquacious and paranoid. We discuss medications as well as his family functioning. He does agree to take aripiprazole tonight but would like to transition to intermuscular formulation as soon as possible as this is preferable to oral. Objective - Appearance Appearance: Thin Framed Dysmorphic Features: No Hygiene: Normal Grooming: Fairly Well Kept - Behavior Psychomotor Activities: Normal Exhibits Abnormal Movement: No - Attitude and Relatedness Attitude and Relatedness: argumentative Eye Contact: Fair - Speech Quality: Pressured Latencies: Short Quantity: Copious - Mood Patient's Decription of Mood: "Anxious" - Affect Observed Affect: Good Affect Consistent with: Dysphoria - Thought Process Patient's Thought Process: Tangential Thought Content: Yes Paranoid Ideation, No Passive Wish, No Suicidal Planning, No Homicidal Ideation - Sensorium Experiencing Hallucinations: Yes Type of Hallucinations: Visual: No, Auditory: Yes, Command: No - Level of Consciousness Level of Consciousness: Alert Orientation: Yes Intact, Yes Orientated to Time, Yes Orientated to Place, Yes Orientated to Person - Impulse Control Impulse Control: Poor - Insight and Judgement Insight and Judgement: Impaired - Group Participation Particating in Group Activities: Yes - Medication Management Medication Management Adherence: No Assessment - Assessment Merits Inpatient Hospitalization: For Immediate Safety, For Stabilization Inpatient DSM-IV Dx: Unspecified Psychotic DO. Alcohol use d/o Clinical Impression: 35 y.o. single, white male with a history of psychosis and affective problems who arrives via EMS after his parents called 911 due to his paranoia, agitation and significant lack of self care. Plan - Plan Treatment Plan: Name: David HOPE Birthdate: 1980 [id number] As per court order we will start aripiprazole today at 5mg PO qhs. He will receive ziprasidone 10mg IM qhs instead in the event that he refuses Abilify. Continue involuntary care. Continued Medication Management: Start Medication Medications: Current Medications Ziprasidone (Geodon Im Inj*) 10 mg IM BEDTIME PRN PRN Reason: AGITATION - Discharge Plan Discharge Plan: Inpatient Hospitalization
[2016-11-07] MEDS ORDERED: Ziprasidone IM INJ* 20 MG/ML VIAL IM PRN (21:00)
[2016-11-07] MEDS ORDERED: ARIPiprazole TAB* 5 MG PO SCH (21:00)
--- NOTE | 2016-11-08 13:17 | PN ---
MHU: Group Therapy Note - Service Type Service Type: [id number] Group Psychotherapy - Cognitive Behavioral Group Therapy ( CBT):Patient was attentive and participatory in CBT programming this morning, and remained in good behavioral control. Patient expressed positive insights regarding relevant treatment interventions and goals.
--- NOTE | 2016-11-08 13:54 | PN ---
Subjective - Subjective Service Type: [id number] Hosp care 15 min low complexity Subjective: The patient tolerated aripiprazole oral 5mg well last night and indicates that he cannot feel much of any effect, certainly no allergic type reactions. The patient is telling me now that, because of his philosophical opposition to psychotropic medications, he will no longer agree to any further oral medications, but he would not resist administration of anything intramuscularly , as per the court order. He states that he is fine receiving the aripiprazole Maintana today. I caution him about the risks of an allergic reaction, given that he has only received one oral dose so far. 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 "I understand what you mean but it's preferable to taking anything more by mouth." The patient displays no concerning psychotic behavior. Objective - Appearance Appearance: Thin Framed Dysmorphic Features: No Hygiene: Normal Grooming: Fairly Well Kept - Behavior Psychomotor Activities: Normal Exhibits Abnormal Movement: No - Attitude and Relatedness Attitude and Relatedness: Cooperative Eye Contact: Good - Speech Quality: Unpressured Latencies: Normal Quantity: Appropriate - Mood Patient's Decription of Mood: "Okay" - Affect Observed Affect: Depressed Affect Consistent with: Dysphoria - Thought Process Patient's Thought Process: Tangential Thought Content: Yes Paranoid Ideation, No Passive Wish, No Suicidal Planning, No Homicidal Ideation - Sensorium Experiencing Hallucinations: No, Sensorium is Clear Type of Hallucinations: Visual: No, Auditory: No, Command: No - Level of Consciousness Level of Consciousness: Alert Orientation: Yes Intact, Yes Orientated to Time, Yes Orientated to Place, Yes Orientated to Person - Impulse Control Impulse Control: Poor - Insight and Judgement Insight and Judgement: Impaired - Group Participation Particating in Group Activities: Yes - Medication Management Medication Management Adherence: Partial Assessment - Assessment Merits Inpatient Hospitalization: For Immediate Safety, For Stabilization Inpatient DSM-IV Dx: Unspecified Psychotic DO. Alcohol use d/o Clinical Impression: 35 y.o. single, white male with a history of psychosis and affective problems who arrives via EMS after his parents called 911 due to his paranoia, agitation and significant lack of self care. Plan - Plan Treatment Plan: Name: David HOPE Birthdate: 1980 [id number] As per court order we will start aripiprazole Maintana 300mg IM q4wks. He is aware of the theoretical risk of anaphylaxis and insists on taking this course of treatment. Continued Medication Management: Start Medication Medications: Current Medications Aripiprazole (Abilifdina Maintena (Nf)) 300 mg IM Q28D [facility] - Discharge Plan Discharge Plan: Inpatient Hospitalization
[2016-11-08] MEDS ORDERED: Aripiprazole Maintena (NF) 300 MG SYRINGE IM SCH (14:00)
--- NOTE | 2016-11-11 13:18 | PN ---
Subjective - Subjective Service Type: [id number] Hosp care 25 min moderate complexity Subjective: The patient accepted his injectable long-acting Abilify on Friday evening and seems to be tolerating it well. He denies untoward effects. I note that he does appear less hyperverbal and it's easier to have a reciprocal interaction with him today. The patient has agreed to work on a homework assignment in which he writes a letter about his relationship with alcohol. He requests computer privileges for this. The patient also agrees to have a family meeting with his parents and sister prior to discharge. He denies SI or HI and there are no psychotic symptoms noted today. Objective - Appearance Appearance: Thin Framed Dysmorphic Features: No Hygiene: Normal Grooming: Fairly Well Kept - Behavior Psychomotor Activities: Normal Exhibits Abnormal Movement: No - Attitude and Relatedness Attitude and Relatedness: Cooperative Eye Contact: Fair - Speech Quality: Unpressured Latencies: Normal Quantity: Appropriate - Mood Patient's Decription of Mood: "Okay" - Affect Observed Affect: Fair Affect Consistent with: Euthymia - Thought Process Patient's Thought Process: Tangential Thought Content: No Passive Wish, No Suicidal Planning, No Homicidal Ideation, No Paranoid Ideation - Sensorium Experiencing Hallucinations: No, Sensorium is Clear Type of Hallucinations: Visual: No, Auditory: No, Command: No - Level of Consciousness Level of Consciousness: Alert Orientation: Yes Intact, Yes Orientated to Time, Yes Orientated to Place, Yes Orientated to Person - Impulse Control Impulse Control: Tenuous - Insight and Judgement Insight and Judgement: Fair - Group Participation Particating in Group Activities: Yes - Medication Management Medication Management Adherence: Yes Assessment - Assessment Merits Inpatient Hospitalization: Consolid[facility] Improvements, For Discharge Planning Inpatient DSM-IV Dx: Unspecified Psychotic DO. Alcohol use d/o Clinical Impression: 35 y.o. single, white male with a history of psychosis and affective problems who arrives via EMS after his parents called 911 due to his paranoia, agitation and significant lack of self care. Plan - Plan Treatment Plan: Name: David HOPE Birthdate: 1980 [id number] The patient so far appears to be tolerating aripiprazole Maintana 300mg IM q4wks well. We need to work on his alcohol problem and arrange a family meeting for d/c planning. He seems to be improving in terms of both affective and thought disorders. Continued Medication Management: Start Medication Medications: Current Medications Aripiprazole (Earnest Rice (Fela)) 300 mg IM Q28D [facility] Last Admin: 11/08/16 16:07 Dose: 300 mg - Discharge Plan Discharge Plan: Inpatient Hospitalization
--- NOTE | 2016-11-11 13:53 | PN ---
MHU: Group Therapy Note - Service Type Service Type: [id number] Group Psychotherapy - Cognitive Behavioral Group Therapy ( CBT):Patient was attentive and participatory in CBT programming this morning, and remained in good behavioral control. Patient expressed positive insights regarding relevant treatment interventions and goals.
[2016-11-12 09:00] LABS: BUN/Creatinine Ratio 9.1 (8-20); Calcium 9.5 mg/dL (8.6-10.3); EGFR African American 176.6 (>60); EGFR Non-African American 137.4 (>60); Globulin 2.8 g/dL (2-4); HDL Cholesterol 34.5 mg/dL; Potassium 4.2 mmol/L (3.5-5.0); Total Bilirubin 0.5 mg/dL (0.2-1.0); Total Protein 6.8 g/dL (6.4-8.9)
--- NOTE | 2016-11-12 13:41 | PN ---
Subjective - Subjective Service Type: [id number] Hosp care 15 min low complexity Subjective: The patient is seen today for follow up. I point out two factors of his illness that I perceive to be improving: A. that I can have a more reciprocal conversation with him because he is less hyperverbal and pressured; and B. that I no longer observe him talking to himself on the unit. The patient chooses to disagree that these observations indicate that he is improving from mental illness. He reports that he is less pressured and argumentative with me now simply because he has adjusted to the unit and knows that he can not persuade me to let him go. He further rationalizes that he is no longer talking to himself because he now has more friends on the unit amongst his peers and can talk to real people instead. He denies SI or HI and voices no complaints about his medication, other than his continued disagreement with it's utility in his treatment. Objective - Appearance Appearance: Thin Framed Dysmorphic Features: No Hygiene: Normal Grooming: Fairly Well Kept - Behavior Psychomotor Activities: Normal Exhibits Abnormal Movement: No - Attitude and Relatedness Attitude and Relatedness: Appropriate Eye Contact: Good - Speech Quality: Unpressured Latencies: Normal Quantity: Copious - Mood Patient's Decription of Mood: "Okay" - Affect Observed Affect: Tense Affect Consistent with: Dysphoria - Thought Process Patient's Thought Process: Tangential Thought Content: Yes Paranoid Ideation, No Passive Wish, No Suicidal Planning, No Homicidal Ideation - Sensorium Experiencing Hallucinations: No, Sensorium is Clear Type of Hallucinations: Visual: No, Auditory: No, Command: No - Level of Consciousness Level of Consciousness: Alert Orientation: Yes Intact, Yes Orientated to Time, Yes Orientated to Place, Yes Orientated to Person - Impulse Control Impulse Control: Poor - Insight and Judgement Insight and Judgement: Impaired - Group Participation Particating in Group Activities: Yes - Medication Management Medication Management Adherence: Yes Assessment - Assessment Merits Inpatient Hospitalization: For Immediate Safety, For Stabilization Inpatient DSM-IV Dx: Unspecified Psychotic DO. Alcohol use d/o Clinical Impression: 35 y.o. single, white male with a history of psychosis and affective problems who arrives via EMS after his parents called 911 due to his paranoia, agitation and significant lack of self care. Plan - Plan Treatment Plan: Name: David HOPE Birthdate: 1980 [id number] The patient so far appears to be tolerating aripiprazole Maintana 300mg IM q4wks well. We need to work on his alcohol problem. Family meeting for d/c planning is set for tomorrow (11/12) with his father and sister. He seems to be improving in terms of both affective and thought disorders. Continued Medication Management: Start Medication Medications: Current Medications Aripiprazole (Earnest Rice (Fela)) 300 mg IM Q28D [facility] Last Admin: 11/08/16 16:07 Dose: 300 mg - Discharge Plan Discharge Plan: Inpatient Hospitalization
--- NOTE | 2016-11-13 11:32 | PN ---
MHU: Group Therapy Note - Service Type Service Type: [id number] Group Psychotherapy - Cognitive Behavioral Group Therapy ( CBT):Patient was attentive and participatory in CBT programming this morning, and remained in good behavioral control. Patient expressed positive insights regarding relevant treatment interventions and goals. aRul remains defensive in discussion addressing symptoms and functional behavior, asserting that diagnosis is subjective and intrusive. Concerns remain regarding insight and functional capacites prior to his admission. His presentation impresses as improving markedly since admission with medication compliance.
--- NOTE | 2016-11-13 14:38 | PN ---
Subjective - Subjective Service Type: 58535 [facility] Subjective: The patient is seen today for a family meeting, also attended by LYDIA Socorro Collins , his father, Raul Calvo, and his sister, [place]. Raul is once again confronted about the psychotic behaviors leading to this admission and still, occasionally, on display on our unit. He is defensive and argumentative throughout the intervention, often interrupting others, including this clinician , as we bring up areas of concern in his life. The topic of discharge planning is discussed and he is opposed to placement in a dual-diagnoses residential treatment following discharge. He is also greatly opposed to his family rachel with a third democrat to clean up his house and make it habitable again and reacts with anger and hostility after finding out that his family has already initiated this process. The family is confronted about their enabling behaviors leading up to admission and his father makes it clear that their intention is to cut off Raul from financial support should he return to the habits related to admission to the hospital. Ultimately Raul is upset by the interaction and ends the discussion by storming out of the room. Objective - Appearance Appearance: Thin Framed Dysmorphic Features: No Hygiene: Normal Grooming: Fairly Well Kept - Behavior Psychomotor Activities: Normal Exhibits Abnormal Movement: No - Attitude and Relatedness Attitude and Relatedness: Argumentative Eye Contact: Poor - Speech Quality: Pressured Latencies: Short Quantity: Copious - Mood Patient's Decription of Mood: "Angry" - Affect Observed Affect: Labile Affect Consistent with: Dysphoria - Thought Process Patient's Thought Process: Tangential Thought Content: Yes Paranoid Ideation, No Passive Wish, No Suicidal Planning, No Homicidal Ideation - Sensorium Experiencing Hallucinations: No, Sensorium is Clear Type of Hallucinations: Visual: No, Auditory: No, Command: No - Level of Consciousness Level of Consciousness: Agitated Orientation: Yes Intact, Yes Orientated to Time, Yes Orientated to Place, Yes Orientated to Person - Impulse Control Impulse Control: Poor - Insight and Judgement Insight and Judgement: Impaired - Group Participation Particating in Group Activities: Yes - Medication Management Medication Management Adherence: Yes Assessment - Assessment Merits Inpatient Hospitalization: For Immediate Safety, For Stabilization Inpatient DSM-IV Dx: Unspecified Psychotic DO. Alcohol use d/o Clinical Impression: 35 y.o. single, white male with a history of psychosis and affective problems who arrives via EMS after his parents called 911 due to his paranoia, agitation and significant lack of self care. Plan - Plan Treatment Plan: Name: David HOPE Birthdate: 1980 [id number] The patient so far appears to be tolerating aripiprazole Maintana 300mg IM q4wks well. We need to work on his alcohol problem. Family meeting with his father and sister ended without resolution of d/c planning questions. Will repeat this on Friday (11/15). His use of intellectualization, rationalization and denial are troubling. Continued Medication Management: Start Medication Medications: Current Medications Aripiprazole (Earnest Rice (Nf)) 300 mg IM Q28D [facility] Last Admin: 11/08/16 16:07 Dose: 300 mg - Discharge Plan Discharge Plan: Inpatient Hospitalization
--- NOTE | 2016-11-14 13:08 | PN ---
Subjective - Subjective Service Type: 46593 Hosp care 25 min moderate complexity Subjective: The patient was asked to type a letter to alcohol, describing his relationship to this substance and his intentions for the future, as though it was a person. He completes a well-written 2-page, single spaced note that indicates that is verbose and highly abstract, but does convey the sense that he views the substance as potentially harmful to him and something he's ready to reduce, if not give up. The patient does demonstrate hypergraphia, rationalization, and some holes in his insight within the content of the note. For example, he ends the letter with an extended paragraph which is a rambling parable about a fish accused of killing all the fish in a string of ponds. He verbally notes to me, as we process the paper together, that this was "thrown in this morning to show the relationship of causality and correlation." He remains uninsightful about his mental illness. Objective - Appearance Appearance: Thin Framed Dysmorphic Features: No Hygiene: Normal Grooming: Fairly Well Kept - Behavior Psychomotor Activities: Normal - Attitude and Relatedness Attitude and Relatedness: Argumentative Eye Contact: Fair - Speech Quality: Pressured Latencies: Short Quantity: Copious - Mood Patient's Decription of Mood: "Fine" - Affect Observed Affect: Tense Affect Consistent with: Dysphoria - Thought Process Patient's Thought Process: Tangential Thought Content: Yes Paranoid Ideation, No Passive Wish, No Suicidal Planning, No Homicidal Ideation - Sensorium Experiencing Hallucinations: No, Sensorium is Clear Type of Hallucinations: Visual: No, Auditory: No, Command: No - Level of Consciousness Level of Consciousness: Alert Orientation: Yes Intact, Yes Orientated to Time, Yes Orientated to Place, Yes Orientated to Person - Impulse Control Impulse Control: Poor - Insight and Judgement Insight and Judgement: Impaired - Group Participation Particating in Group Activities: Yes - Medication Management Medication Management Adherence: Yes Assessment - Assessment Merits Inpatient Hospitalization: For Immediate Safety, For Stabilization Inpatient DSM-IV Dx: Unspecified Psychotic DO. Alcohol use d/o Clinical Impression: 35 y.o. single, white male with a history of psychosis and affective problems who arrives via EMS after his parents called 911 due to his paranoia, agitation and significant lack of self care. Plan - Plan Treatment Plan: Name: David HOPE Birthdate: 1980 [id number] The patient so far appears to be tolerating aripiprazole Maintana 300mg IM q4wks well. We are working on his alcohol problem. Family meeting with his father and sister will be repeated tomorrow, Friday (11/15). His use of intellectualization, rationalization and denial remain troubling. Continued Medication Management: Start Medication Medications: Current Medications Aripiprazole (Earnest Rice (Nf)) 300 mg IM Q28D COOPER Last Admin: 11/08/16 16:07 Dose: 300 mg - Discharge Plan Discharge Plan: Inpatient Hospitalization
--- NOTE | 2016-11-15 14:50 | PN ---
Subjective - Subjective Service Type: [id number] [facility] Medical Psyc Subjective: Today is our second meeting with Raul and his family, including his sister, [place], and his father, Raul Calvo. Also present is LYDIA Guadalupe. This meeting is more focussed on discharge planning and we offer the option of residential treatment at the [facility] in [facility]. The patient, as directed ahead of time by staff, has written a list of the pro's and con's of this option and speaks at length about what he perceives those to be. Although his speech and thought process are circumstantial he does manage to stay on topic and give his reasons for and against residential care. He seems to lean towards declining this, although he notes that he will try to maintain an open mind. The patient continues to display poor insight into his illness, although he is less hostile towards his family today. Objective - Appearance Appearance: Thin Framed Dysmorphic Features: No Hygiene: Normal Grooming: Fairly Well Kept - Behavior Psychomotor Activities: Normal Exhibits Abnormal Movement: No - Attitude and Relatedness Attitude and Relatedness: Argumentative Eye Contact: Fair - Speech Quality: Pressured Latencies: Short Quantity: Copious - Mood Patient's Decription of Mood: "Okay" - Affect Observed Affect: Tense Affect Consistent with: Dysphoria - Thought Process Patient's Thought Process: Circumstantial Thought Content: Yes Paranoid Ideation, No Passive Wish, No Suicidal Planning, No Homicidal Ideation - Sensorium Experiencing Hallucinations: No, Sensorium is Clear Type of Hallucinations: Visual: No, Auditory: No, Command: No - Level of Consciousness Level of Consciousness: Alert Orientation: Yes Intact, Yes Orientated to Time, Yes Orientated to Place, Yes Orientated to Person - Impulse Control Impulse Control: Poor - Insight and Judgement Insight and Judgement: Impaired - Group Participation Particating in Group Activities: Yes - Medication Management Medication Management Adherence: Yes Assessment - Assessment Merits Inpatient Hospitalization: For Immediate Safety, For Stabilization Inpatient DSM-IV Dx: Unspecified Psychotic DO. Alcohol use d/o Clinical Impression: 35 y.o. single, white male with a history of psychosis and affective problems who arrives via EMS after his parents called 911 due to his paranoia, agitation and significant lack of self care. Plan - Plan Treatment Plan: Name: David HOPE Birthdate: 1980 [id number] The patient so far appears to be tolerating aripiprazole Maintana 300mg IM q4wks well. We are working on his alcohol problem. Family meeting with his father and sister will be repeated Friday (11/18). His use of intellectualization, rationalization and denial remain troubling. Continued Medication Management: Start Medication Medications: Current Medications Aripiprazole (Earnest Barbaa (Nf)) 300 mg IM Q28D COOPER Last Admin: 11/08/16 16:07 Dose: 300 mg - Discharge Plan Discharge Plan: Inpatient Hospitalization
--- NOTE | 2016-11-18 12:48 | PN ---
MHU: Group Therapy Note - Service Type Service Type: [id number] Group Psychotherapy - Cognitive Behavioral Group Therapy ( CBT):Patient was attentive and participatory in CBT programming this morning, and remained in good behavioral control. Patient expressed positive insights regarding relevant treatment interventions and goals.
--- NOTE | 2016-11-18 14:26 | PN ---
Subjective - Subjective Service Type: 32290 Family [facility] Psyc Subjective: Today we have our third family meeting in a week involving the patient's sister and father, along with LYDIA Guadalupe. The patient describes at length his reservations about going to the [facility] for longer-term residential treatment and describes on a copied sheet of paper his plan for follow up treatment in the community if he was allowed to return to his home, as he is requesting. Notably, he makes no statement about medication management and, in fact, states that his second priority, behind only returning home in terms of importance to him, is to not continue medication. The meeting ends at an impasse, as his family and the treatment team remain committed to him receiving residential services as a condition for his return home. He remains uninsightful and in denial about his mental illness. Objective - Appearance Appearance: Thin Framed Dysmorphic Features: No Hygiene: Normal Grooming: Fairly Well Kept - Behavior Psychomotor Activities: Normal Exhibits Abnormal Movement: No - Attitude and Relatedness Attitude and Relatedness: Argumentative Eye Contact: Fair - Speech Quality: Pressured Latencies: Short Quantity: Copious - Mood Patient's Decription of Mood: "Okay" - Affect Observed Affect: Tense Affect Consistent with: Dysphoria - Thought Process Patient's Thought Process: Circumstantial Thought Content: Yes Paranoid Ideation, No Passive Wish, No Suicidal Planning, No Homicidal Ideation - Sensorium Experiencing Hallucinations: Yes Type of Hallucinations: Visual: No, Auditory: No, Command: No - Level of Consciousness Level of Consciousness: Alert Orientation: Yes Intact, Yes Orientated to Time, Yes Orientated to Place, Yes Orientated to Person - Impulse Control Impulse Control: Poor - Insight and Judgement Insight and Judgement: Impaired - Group Participation Particating in Group Activities: Yes - Medication Management Medication Management Adherence: Yes Assessment - Assessment Merits Inpatient Hospitalization: For Immediate Safety, For Stabilization Inpatient DSM-IV Dx: Unspecified Psychotic DO. Alcohol use d/o Clinical Impression: 35 y.o. single, white male with a history of psychosis and affective problems who arrives via EMS after his parents called 911 due to his paranoia, agitation and significant lack of self care. Plan - Plan Treatment Plan: Name: David HOPE Birthdate: 1980 [id number] The patient so far appears to be tolerating aripiprazole Maintana 300mg IM q4wks well. We are working on his alcohol problem. His continued poor insight and use of intellectualization, rationalization and denial remain barriers to discharge. Continued Medication Management: Start Medication Medications: Current Medications Aripiprazole (Earnest Barbaa (Nf)) 300 mg IM Q28D COOPER Last Admin: 11/08/16 16:07 Dose: 300 mg - Discharge Plan Discharge Plan: Inpatient Hospitalization
--- NOTE | 2016-11-19 13:04 | PN ---
MHU: Group Therapy Note - Service Type Service Type: [id number] Group Psychotherapy - Cognitive Behavioral Group Therapy ( CBT):Patient was attentive and participatory in CBT programming this morning, and remained in good behavioral control. Patient expressed positive insights regarding relevant treatment interventions and goals.
--- NOTE | 2016-11-19 16:35 | PN ---
Subjective - Subjective Service Type: 66569 Hosp care 15 min low complexity Subjective: Patient is unwilling to agree to residential treatment at this time. He understands that his family may withdraw all support if he makes this choice but wants to consider the consequences of this further before making a decision. No behavioral problems noted on the unit. Objective - Appearance Appearance: Thin Framed Dysmorphic Features: No Hygiene: Normal Grooming: Fairly Well Kept - Behavior Psychomotor Activities: Normal Exhibits Abnormal Movement: No - Attitude and Relatedness Attitude and Relatedness: argumentative Eye Contact: Fair - Speech Quality: Pressured Latencies: Normal Quantity: Copious - Mood Patient's Decription of Mood: "Okay" - Affect Observed Affect: Tense Affect Consistent with: Dysphoria - Thought Process Patient's Thought Process: Circumstantial Thought Content: Yes Paranoid Ideation, No Passive Wish, No Suicidal Planning, No Homicidal Ideation - Sensorium Experiencing Hallucinations: No, Sensorium is Clear Type of Hallucinations: Visual: No, Auditory: No, Command: No - Level of Consciousness Level of Consciousness: Alert Orientation: Yes Intact, Yes Orientated to Time, Yes Orientated to Place, Yes Orientated to Person - Impulse Control Impulse Control: Poor - Insight and Judgement Insight and Judgement: Impaired - Group Participation Particating in Group Activities: Yes - Medication Management Medication Management Adherence: Yes Assessment - Assessment Merits Inpatient Hospitalization: For Immediate Safety, For Stabilization Inpatient DSM-IV Dx: Unspecified Psychotic DO. Alcohol use d/o Clinical Impression: 35 y.o. single, white male with a history of psychosis and affective problems who arrives via EMS after his parents called 911 due to his paranoia, agitation and significant lack of self care. Plan - Plan Treatment Plan: Name: David HOPE Birthdate: 1980 [id number] The patient so far appears to be tolerating aripiprazole Maintana 300mg IM q4wks well. We are working on his alcohol problem. His continued poor insight and use of intellectualization, rationalization and denial remain barriers to discharge. Continued Medication Management: Start Medication Medications: Current Medications Aripiprazole (Clairlifdina Maintena (Nf)) 300 mg IM Q28D COOPER Last Admin: 11/08/16 16:07 Dose: 300 mg - Discharge Plan Discharge Plan: Inpatient Hospitalization
--- NOTE | 2016-11-20 11:58 | PN ---
MHU: Group Therapy Note - Service Type Service Type: [id number] Group Psychotherapy - Cognitive Behavioral Group Therapy ( CBT):Patient was attentive and participatory in CBT programming this morning, and remained in good behavioral control. Patient expressed positive insights regarding relevant treatment interventions and goals.
--- NOTE | 2016-11-20 15:36 | PN ---
Subjective - Subjective Service Type: 36635 Hosp care 15 min low complexity Subjective: The patient states that, for now, he is declining the recommendation of the treatment team to go to residential psychiatric treatment prior to returning to his home in [place], which is the plan that his family is likewise in support of. "If that's Plan A, then I'd at least want to hear Plan B. If Plan B was a lobotomy then going to residential treatment would be something I might be more likely to choose." He remains somewhat argumentative, although this has dissipated slightly. He continues to show poor insight and does not, for example, believe that he is mentally ill nor need medications. Objective - Appearance Appearance: Thin Framed Dysmorphic Features: No Hygiene: Normal Grooming: Fairly Well Kept - Behavior Psychomotor Activities: Normal Exhibits Abnormal Movement: No - Attitude and Relatedness Attitude and Relatedness: Superficially Cooperative Eye Contact: Fair - Speech Quality: Pressured Latencies: Normal Quantity: Copious - Mood Patient's Decription of Mood: "Okay" - Affect Observed Affect: Tense Affect Consistent with: Dysphoria - Thought Process Patient's Thought Process: Circumstantial Thought Content: Yes Paranoid Ideation, No Passive Wish, No Suicidal Planning, No Homicidal Ideation - Sensorium Experiencing Hallucinations: No, Sensorium is Clear Type of Hallucinations: Visual: No, Auditory: No, Command: No - Level of Consciousness Level of Consciousness: Alert Orientation: Yes Intact, Yes Orientated to Time, Yes Orientated to Place, Yes Orientated to Person - Impulse Control Impulse Control: Poor - Insight and Judgement Insight and Judgement: Impaired - Group Participation Particating in Group Activities: Yes - Medication Management Medication Management Adherence: Yes Assessment - Assessment Merits Inpatient Hospitalization: For Immediate Safety, For Stabilization Inpatient DSM-IV Dx: Unspecified Psychotic DO. Alcohol use d/o Clinical Impression: 35 y.o. single, white male with a history of psychosis and affective problems who arrives via EMS after his parents called 911 due to his paranoia, agitation and significant lack of self care. Plan - Plan Treatment Plan: Name: David HOPE Birthdate: 1980 [id number] The patient so far appears to be tolerating aripiprazole Maintana 300mg IM q4wks well. The team is encouraging him to accept a residential treatment placement, however, he is declining this in favor of discharge directly to his home. Will discuss the situation with the family and treatment team and see if other options are available at this time. Continued Medication Management: Start Medication Medications: Current Medications Aripiprazole (Earnest Rice (Fela)) 300 mg IM Q28D COOPER Last Admin: 11/08/16 16:07 Dose: 300 mg - Discharge Plan Discharge Plan: Inpatient Hospitalization
--- NOTE | 2016-11-21 13:45 | PN ---
MHU: Group Therapy Note - Service Type Service Type: [id number] Group Psychotherapy - Cognitive Behavioral Group Therapy ( CBT):Patient was attentive and participatory in CBT programming this morning, and remained in good behavioral control. Patient expressed positive insights regarding relevant treatment interventions and goals.
--- NOTE | 2016-11-21 13:56 | PN ---
Subjective - Subjective Service Type: 80157 Hosp care 15 min low complexity Subjective: The patient continues to decline residential treatment, stating that he prefers standard community mental health follow up and returning to live in his house. I spoke in a conference call with his parents and his sister, and the consensus is that he would not be safe without much more structure than standard outpatient care could afford. I do let the patient know that we are actively considering State Hospitalization as an alternative placement. The patient states that he would like to think about what I'm sharing with him and meet up again tomorrow to discuss it further. He continues to deny that he has a mental illness and states his preference to discontinue medication after discharge. Objective - Appearance Appearance: Thin Framed Dysmorphic Features: No Hygiene: Normal Grooming: Fairly Well Kept - Behavior Psychomotor Activities: Normal Exhibits Abnormal Movement: No - Attitude and Relatedness Attitude and Relatedness: Superficially Cooperative Eye Contact: Fair - Speech Quality: Pressured Latencies: Short Quantity: Copious - Mood Patient's Decription of Mood: "Upset" - Affect Observed Affect: Tense Affect Consistent with: Dysphoria - Thought Process Patient's Thought Process: Tangential Thought Content: Yes Paranoid Ideation, No Passive Wish, No Suicidal Planning, No Homicidal Ideation - Sensorium Experiencing Hallucinations: No, Sensorium is Clear Type of Hallucinations: Visual: No, Auditory: No, Command: No - Level of Consciousness Level of Consciousness: Alert Orientation: Yes Intact, Yes Orientated to Time, Yes Orientated to Place, Yes Orientated to Person - Impulse Control Impulse Control: Poor - Insight and Judgement Insight and Judgement: Impaired - Group Participation Particating in Group Activities: No - Medication Management Medication Management Adherence: Yes Assessment - Assessment Merits Inpatient Hospitalization: For Immediate Safety, For Stabilization Inpatient DSM-IV Dx: Unspecified Psychotic DO. Alcohol use d/o Clinical Impression: 35 y.o. single, white male with a history of psychosis and affective problems who arrives via EMS after his parents called 911 due to his paranoia, agitation and significant lack of self care. Plan - Plan Treatment Plan: Name: David HOPE Birthdate: 1980 [id number] The patient so far appears to be tolerating aripiprazole Maintana 300mg IM q4wks well. The team is encouraging him to accept a residential treatment placement, however, he is declining this in favor of discharge directly to his home. If he continues to decline this, State referral may be warranted. Continued Medication Management: Start Medication Medications: Current Medications Aripiprazole (Earnest Rice (Fela)) 300 mg IM Q28D COOPER Last Admin: 11/08/16 16:07 Dose: 300 mg - Discharge Plan Discharge Plan: Inpatient Hospitalization
--- NOTE | 2016-11-22 13:51 | PN ---
Subjective - Subjective Service Type: 90679 Hosp care 25 min moderate complexity Subjective: Raul is seen, along with LYDIA GuerreroSocorro Collins, for routine follow up. He continues to decline referral to residential treatment and says that he is still thinking about his options for moving forward. He is hyperverbal and abstract but not overtly psychotic. Objective - Appearance Appearance: Thin Framed Dysmorphic Features: No Hygiene: Normal Grooming: Fairly Well Kept - Behavior Psychomotor Activities: Normal Exhibits Abnormal Movement: No - Attitude and Relatedness Attitude and Relatedness: Superficially Cooperative Eye Contact: Fair - Speech Quality: Pressured Latencies: Short Quantity: Copious - Mood Patient's Decription of Mood: "Okay" - Affect Observed Affect: Tense Affect Consistent with: Dysphoria - Thought Process Patient's Thought Process: Tangential Thought Content: Yes Paranoid Ideation, No Passive Wish, No Suicidal Planning, No Homicidal Ideation - Sensorium Experiencing Hallucinations: No, Sensorium is Clear Type of Hallucinations: Visual: No, Auditory: No, Command: No - Level of Consciousness Level of Consciousness: Alert Orientation: Yes Intact, Yes Orientated to Time, Yes Orientated to Place, Yes Orientated to Person - Impulse Control Impulse Control: Poor - Insight and Judgement Insight and Judgement: Impaired - Group Participation Particating in Group Activities: Yes - Medication Management Medication Management Adherence: Yes Assessment - Assessment Merits Inpatient Hospitalization: For Immediate Safety, For Stabilization Inpatient DSM-IV Dx: Unspecified Psychotic DO. Alcohol use d/o Clinical Impression: 35 y.o. single, white male with a history of psychosis and affective problems who arrives via EMS after his parents called 911 due to his paranoia, agitation and significant lack of self care. Plan - Plan Treatment Plan: Name: David HOPE Birthdate: 1980 [id number] The patient so far appears to be tolerating aripiprazole Maintana 300mg IM q4wks well. The team is encouraging him to accept a residential treatment placement, however, he is declining this in favor of discharge directly to his home. If he continues to decline this, State referral may be warranted. Continued Medication Management: Start Medication Medications: Current Medications Aripiprazole (Earnest Barbaa (Nf)) 300 mg IM Q28D COOPER Last Admin: 11/08/16 16:07 Dose: 300 mg - Discharge Plan Discharge Plan: Inpatient Hospitalization
--- NOTE | 2016-11-25 11:43 | PN ---
MHU: Group Therapy Note - Service Type Service Type: 72366 Group Psychotherapy - Cognitive Behavioral Group Therapy ( CBT):Patient was attentive and participatory in CBT programming this morning, and remained in good behavioral control. Patient expressed positive insights regarding relevant treatment interventions and goals.
--- NOTE | 2016-11-25 15:57 | PN ---
Subjective - Subjective Service Type: 04138 Hosp care 15 min low complexity Subjective: Raul continues to present as hyperverbal and rationalizing towards his presenting symptoms. He continues to state his preference for discharge back to his house with standard outpatient MH follow up and no psychiatric medications. The patient is given various options for continuing his treatment , which would include either [facility], Inpatient drug and alcohol rehab or State Hospitalization. He says he will talk with LYDIA Guadalupe to see what various Rehab settings would be like. Objective - Appearance Appearance: Thin Framed Dysmorphic Features: No Hygiene: Normal Grooming: Fairly Well Kept - Behavior Psychomotor Activities: Normal Exhibits Abnormal Movement: No - Attitude and Relatedness Attitude and Relatedness: Superficially Cooperative Eye Contact: Fair - Speech Quality: Pressured Latencies: Short Quantity: Copious - Mood Patient's Decription of Mood: "Fine" - Affect Observed Affect: Tense Affect Consistent with: Dysphoria - Thought Process Patient's Thought Process: Tangential Thought Content: Yes Paranoid Ideation, No Passive Wish, No Suicidal Planning, No Homicidal Ideation - Sensorium Experiencing Hallucinations: No, Sensorium is Clear Type of Hallucinations: Visual: No, Auditory: No, Command: No - Level of Consciousness Level of Consciousness: Alert Orientation: Yes Intact, Yes Orientated to Time, Yes Orientated to Place, Yes Orientated to Person - Impulse Control Impulse Control: Poor - Insight and Judgement Insight and Judgement: Impaired - Group Participation Particating in Group Activities: Yes - Medication Management Medication Management Adherence: Yes Assessment - Assessment Merits Inpatient Hospitalization: For Immediate Safety, For Stabilization Inpatient DSM-IV Dx: Unspecified Psychotic DO. Alcohol use d/o Clinical Impression: 35 y.o. single, white male with a history of psychosis and affective problems who arrives via EMS after his parents called 911 due to his paranoia, agitation and significant lack of self care. Plan - Plan Treatment Plan: Name: David HOPE Birthdate: 1980 [id number] The patient so far appears to be tolerating aripiprazole Maintana 300mg IM q4wks well. The team is encouraging him to accept a residential treatment placement, however, he is declining this in favor of discharge directly to his home. If he continues to decline this, State referral may be warranted. Continued Medication Management: Start Medication Medications: Current Medications Aripiprazole (Abilify Maintena (Fela)) 300 mg IM Q28D [facility] Last Admin: 11/08/16 16:07 Dose: 300 mg - Discharge Plan Discharge Plan: Inpatient Hospitalization
--- NOTE | 2016-11-26 11:40 | PN ---
Subjective - Subjective Service Type: 52415 Hosp care 15 min low complexity Subjective: Raul remains hyperverbal and argumentative, failing to see the so-called "big- picture" of his presentation and denying that he has a psychotic condition, despite considerable evidence to the contrary, which he is once again confronted with. At this time he has not yet decided what treatment disposition he will choose in advance of being discharged from this facility. He notes that he will discuss his options with LYDIA, Socorro Guadalupe, today and will decide by tomorrow. Objective - Appearance Appearance: Thin Framed Dysmorphic Features: No Hygiene: Normal Grooming: Fairly Well Kept - Behavior Psychomotor Activities: Normal Exhibits Abnormal Movement: No - Attitude and Relatedness Attitude and Relatedness: Minimally Cooperative Eye Contact: Fair - Speech Quality: Pressured Latencies: Short Quantity: Copious - Mood Patient's Decription of Mood: "Okay" - Affect Observed Affect: Tense Affect Consistent with: Dysphoria - Thought Process Patient's Thought Process: Circumstantial Thought Content: Yes Paranoid Ideation, No Passive Wish, No Suicidal Planning, No Homicidal Ideation - Sensorium Experiencing Hallucinations: No, Sensorium is Clear Type of Hallucinations: Visual: No, Auditory: No, Command: No - Level of Consciousness Level of Consciousness: Alert Orientation: Yes Intact, Yes Orientated to Time, Yes Orientated to Place, Yes Orientated to Person - Impulse Control Impulse Control: Poor - Insight and Judgement Insight and Judgement: Impaired - Group Participation Particating in Group Activities: Yes - Medication Management Medication Management Adherence: Yes Assessment - Assessment Merits Inpatient Hospitalization: For Immediate Safety, For Stabilization Inpatient DSM-IV Dx: Unspecified Psychotic DO. Alcohol use d/o Clinical Impression: 35 y.o. single, white male with a history of psychosis and affective problems who arrives via EMS after his parents called 911 due to his paranoia, agitation and significant lack of self care. Plan - Plan Treatment Plan: Name: David HOPE Birthdate: 1980 [id number] The patient so far appears to be tolerating aripiprazole Maintana 300mg IM q4wks well. The team is encouraging him to accept a residential treatment placement, however, he is declining this in favor of discharge directly to his home. If he continues to decline this, State referral may be warranted. Continued Medication Management: Start Medication Medications: Current Medications Aripiprazole (Earnest Rice (Fela)) 300 mg IM Q28D [facility] Last Admin: 11/08/16 16:07 Dose: 300 mg - Discharge Plan Discharge Plan: Inpatient Hospitalization
--- NOTE | 2016-11-26 12:51 | PN ---
MHU: Group Therapy Note - Service Type Service Type: 54626 Group Psychotherapy - Cognitive Behavioral Group Therapy ( CBT):Patient was attentive and participatory in CBT programming this morning, and remained in good behavioral control. Patient expressed positive insights regarding relevant treatment interventions and goals.
--- NOTE | 2016-11-27 14:41 | PN ---
Subjective - Subjective Service Type: 88633 Hosp care 15 min low complexity Subjective: The patient has yet to decide what treatment modality and placement situation he would pursue following discharge from acute hospitalization. He requests that I return to see him later this afternoon so he can further consider his options. 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 He seems embarrassed when I point it out and I ask if that's how he views his treatment here on the [facility]. He denies this and hastily tells me that it is in relation to the court situation he faced several years ago in which he blames the legal system for not giving him a speedy trial to clear his name. This subject launches him into pedantic accounts of topics such as [place] [facility], [place] laws and the [place] Constitution. "I don't think my treatment here is illegal, but I think it should be." We agree to meet again later in the day to see if he's made a decision about moving forward. Objective - Appearance Appearance: Thin Framed Dysmorphic Features: No Hygiene: Normal Grooming: Fairly Well Kept - Behavior Psychomotor Activities: Normal Exhibits Abnormal Movement: No - Attitude and Relatedness Attitude and Relatedness: Minimally Cooperative Eye Contact: Fair - Speech Quality: Pressured Latencies: Short Quantity: Copious - Mood Patient's Decription of Mood: "Fine" - Affect Observed Affect: Fair Affect Consistent with: Euthymia - Thought Process Patient's Thought Process: Circumstantial Thought Content: Yes Paranoid Ideation, No Passive Wish, No Suicidal Planning, No Homicidal Ideation - Sensorium Experiencing Hallucinations: No, Sensorium is Clear Type of Hallucinations: Visual: No, Auditory: No, Command: No - Level of Consciousness Level of Consciousness: Alert Orientation: Yes Intact, Yes Orientated to Time, Yes Orientated to Place, Yes Orientated to Person - Impulse Control Impulse Control: Poor - Insight and Judgement Insight and Judgement: Impaired - Group Participation Particating in Group Activities: Yes - Medication Management Medication Management Adherence: Yes Assessment - Assessment Merits Inpatient Hospitalization: For Immediate Safety, For Stabilization Inpatient DSM-IV Dx: Unspecified Psychotic DO. Alcohol use d/o Clinical Impression: 35 y.o. single, white male with a history of psychosis and affective problems who arrives via EMS after his parents called 911 due to his paranoia, agitation and significant lack of self care. Plan - Plan Treatment Plan: Name: David HOPE Birthdate: 1980 [id number] The patient so far appears to be tolerating aripiprazole Maintana 300mg IM q4wks well. The team is encouraging him to accept a residential treatment placement, however, he is declining this in favor of discharge directly to his home. If he continues to decline this, State referral may be warranted. Continued Medication Management: Start Medication Medications: Current Medications Aripiprazole (Earnest Rice (Nf)) 300 mg IM Q28D [facility] Last Admin: 11/08/16 16:07 Dose: 300 mg - Discharge Plan Discharge Plan: Inpatient Hospitalization
--- NOTE | 2016-11-28 15:27 | PN ---
Subjective - Subjective Service Type: 87797 Hosp care 15 min low complexity Subjective: The patient became agitated today after being told by his SW, Socorro Collins, that she was obligated to speak with his family today, following his decision to reject residential treatment following discharge. "This is a violation of my rights. I don't want you speaking to them. I want to notify them myself." Later he is overheard calling his State-appointed commercial real estate attorney and ranting at them in a loud, pressured and poorly organized fashion. He is passive-aggressive during my meeting with him later in the afternoon. "I guess I have to accept that you're going to call them in spite of the fact that I've asked you not to. My wishes haven't really been listened to since I've been here anyway." He denies SI or HI but remains poorly attenuated to reality and cannot give a reasonable plan for safety after discharge, especially if his parents decide to withdraw their support, which they have threatened to do, were he to refuse residential care. Objective - Appearance Appearance: Thin Framed Dysmorphic Features: No Hygiene: Normal Grooming: Fairly Well Kept - Behavior Psychomotor Activities: Normal Exhibits Abnormal Movement: No - Attitude and Relatedness Attitude and Relatedness: Superficially Cooperative Eye Contact: Poor - Speech Quality: Pressured Latencies: Short Quantity: Copious - Mood Patient's Decription of Mood: "Irritable" - Affect Observed Affect: Labile Affect Consistent with: Dysphoria - Thought Process Patient's Thought Process: Tangential Thought Content: Yes Paranoid Ideation, No Passive Wish, No Suicidal Planning, No Homicidal Ideation - Sensorium Experiencing Hallucinations: No, Sensorium is Clear Type of Hallucinations: Visual: No, Auditory: No, Command: No - Level of Consciousness Level of Consciousness: Agitated Orientation: Yes Intact, Yes Orientated to Time, Yes Orientated to Place, Yes Orientated to Person - Impulse Control Impulse Control: Poor - Insight and Judgement Insight and Judgement: Impaired - Group Participation Particating in Group Activities: Yes - Medication Management Medication Management Adherence: Yes Assessment - Assessment Merits Inpatient Hospitalization: For Immediate Safety, For Stabilization Inpatient DSM-IV Dx: Unspecified Psychotic DO. Alcohol use d/o Clinical Impression: 35 y.o. single, white male with a history of psychosis and affective problems who arrives via EMS after his parents called 911 due to his paranoia, agitation and significant lack of self care. Plan - Plan Treatment Plan: Name: David HOPE Birthdate: 1980 [id number] The patient so far appears to be tolerating aripiprazole Maintana 300mg IM q4wks well. The team is encouraging him to accept a residential treatment placement, however, he is declining this in favor of discharge directly to his home. If he continues to decline this, State referral may be warranted. Continued Medication Management: Start Medication Medications: Current Medications Aripiprazole (Earnest Rice (Nf)) 300 mg IM Q28D [facility] Last Admin: 11/08/16 16:07 Dose: 300 mg - Discharge Plan Discharge Plan: Inpatient Hospitalization
--- NOTE | 2016-11-29 11:48 | PN ---
MHU: Group Therapy Note - Service Type Service Type: 27913 Group Psychotherapy - Cognitive Behavioral Group Therapy ( CBT):Patient was attentive and participatory in CBT programming this morning, and remained in good behavioral control. Patient expressed positive insights regarding relevant treatment interventions and goals.
--- NOTE | 2016-11-29 16:05 | PN ---
Subjective - Subjective Service Type: 47205 Hosp care 15 min low complexity Subjective: The patient once again refused placement in a residential care facility and his [facility] civil attorney signed off on his transfer to [facility] this afternoon. I spoke with his parents and his sister and they are open to coming in on Friday, (12/03), for another family meeting to determine our best course of action. The patient is oppositional and not demonstrating insight into his condition. Objective - Appearance Appearance: Thin Framed Dysmorphic Features: No Hygiene: Normal Grooming: Fairly Well Kept - Behavior Psychomotor Activities: Normal Exhibits Abnormal Movement: No - Attitude and Relatedness Attitude and Relatedness: Minimally Cooperative Eye Contact: Poor - Speech Quality: Pressured Latencies: Short Quantity: Copious - Mood Patient's Decription of Mood: "Angry" - Affect Observed Affect: Constricted Affect Consistent with: Dysphoria - Thought Process Patient's Thought Process: Circumstantial Thought Content: Yes Paranoid Ideation, No Passive Wish, No Suicidal Planning, No Homicidal Ideation - Sensorium Experiencing Hallucinations: No, Sensorium is Clear Type of Hallucinations: Visual: No, Auditory: No, Command: No - Level of Consciousness Level of Consciousness: Alert Orientation: Yes Intact, Yes Orientated to Time, Yes Orientated to Place, Yes Orientated to Person - Impulse Control Impulse Control: Poor - Insight and Judgement Insight and Judgement: Impaired - Group Participation Particating in Group Activities: Yes - Medication Management Medication Management Adherence: Yes Assessment - Assessment Merits Inpatient Hospitalization: For Immediate Safety, For Stabilization Inpatient DSM-IV Dx: Unspecified Psychotic DO. Alcohol use d/o Clinical Impression: 35 y.o. single, white male with a history of psychosis and affective problems who arrives via EMS after his parents called 911 due to his paranoia, agitation and significant lack of self care. Plan - Plan Treatment Plan: Name: David HOPE Birthdate: 1980 [id number] The patient so far appears to be tolerating aripiprazole Maintana 300mg IM q4wks well. The team is encouraging him to accept a residential treatment placement, however, he is declining this in favor of discharge directly to his home. If he continues to decline this, State referral may be warranted. Family meeting on 12/03 to discuss options. Continued Medication Management: Start Medication Medications: Current Medications Aripiprazole (Abilify Maintena (Nf)) 300 mg IM Q28D [facility] Last Admin: 11/08/16 16:07 Dose: 300 mg - Discharge Plan Discharge Plan: Inpatient Hospitalization
--- NOTE | 2016-12-02 11:59 | PN ---
Subjective - Subjective Service Type: 57336 Hosp care 15 min low complexity Subjective: Mr. Hope continues to have rambling, abstract speech this morning. He acknowledges, in his own words, that his life was "bogged down in a imtiaz for six and a half years," and goes on to report his sense that he is emerging from this "funk." Despite this admission, he gives no credit to the interventions of the treatment team nor his parents for this stated improvement in his trajectory. "I see this place and all I've endured here as part of the imtiaz. I don't think I'll really get on the track to self-sustainment and productivity until I get out of here." He continues to refuse residential treatment, preferring the [facility]. "Even though [facility] would be better for me , I feel like if I agree to that, it will be as if I agree with all the things that have happened to me leading up it. And I don't." Objective - Appearance Appearance: Thin Framed Dysmorphic Features: No Hygiene: Normal Grooming: Fairly Well Kept - Behavior Psychomotor Activities: Normal Exhibits Abnormal Movement: No - Attitude and Relatedness Attitude and Relatedness: Minimally Cooperative Eye Contact: Fair - Speech Quality: Pressured Latencies: Short Quantity: Copious - Mood Patient's Decription of Mood: "Fine" - Affect Observed Affect: Tense Affect Consistent with: Dysphoria - Thought Process Patient's Thought Process: Circumstantial Thought Content: Yes Paranoid Ideation, No Passive Wish, No Suicidal Planning, No Homicidal Ideation - Sensorium Experiencing Hallucinations: No, Sensorium is Clear Type of Hallucinations: Visual: No, Auditory: No, Command: No - Level of Consciousness Level of Consciousness: Alert Orientation: Yes Intact, Yes Orientated to Time, Yes Orientated to Place, Yes Orientated to Person - Impulse Control Impulse Control: Poor - Insight and Judgement Insight and Judgement: Impaired - Group Participation Particating in Group Activities: Yes - Medication Management Medication Management Adherence: Yes Assessment - Assessment Merits Inpatient Hospitalization: For Immediate Safety, For Stabilization Inpatient DSM-IV Dx: Unspecified Psychotic DO. Alcohol use d/o Clinical Impression: 35 y.o. single, white male with a history of psychosis and affective problems who arrives via EMS after his parents called 911 due to his paranoia, agitation and significant lack of self care. Plan - Plan Treatment Plan: Name: David HOPE Birthdate: 1980 [id number] The patient so far appears to be tolerating aripiprazole Maintana 300mg IM q4wks well. The team is encouraging him to accept a residential treatment placement, however, he is declining this in favor of discharge directly to his home. [facility] referral has been initiated. Family meeting on 12/04 to discuss options. Continued Medication Management: Start Medication Medications: Current Medications Aripiprazole (Earnest Rice (Nf)) 300 mg IM Q28D [facility] Last Admin: 11/08/16 16:07 Dose: 300 mg - Discharge Plan Discharge Plan: Consider Longer Term Tx
--- NOTE | 2016-12-03 11:49 | PN ---
MHU: Group Therapy Note - Service Type Service Type: 12556 Group Psychotherapy - Cognitive Behavioral Group Therapy ( CBT):Patient was attentive and participatory in CBT programming this morning, and remained in good behavioral control. Patient expressed positive insights regarding relevant treatment interventions and goals. Raul expressed his hopes of attaining discharge, ventilating his frustration regarding his continuing hospitalzation. He is hopeful of being afforded the opportunity to be successful returing to his home, expressing his intentions with complying with recommended outpatient treatment, both in regards to treatment team expectations as well as his parents.
--- NOTE | 2016-12-04 13:08 | PN ---
MHU: Group Therapy Note - Service Type Service Type: 06872 Group Psychotherapy - Cognitive Behavioral Group Therapy ( CBT):Patient was attentive and participatory in CBT programming this morning, and remained in good behavioral control. Patient expressed positive insights regarding relevant treatment interventions and goals.
--- NOTE | 2016-12-04 15:25 | PN ---
Subjective - Subjective Service Type: 12706 [facility] Subjective: We met again with Raul and his family this afternoon. The patient, both his parents, his sister, myself and LYDIA Guadalupe were all in attendance. The patient was contrary, albeit in a polite, soft-spoken fashion. He continues to make excuses for his illness behaviors leading up to admission and openly admits that he is leaning towards self-discontinuing medication after d/c, despite multiple appeals from the treatment team and his family in support of the medication's benefits thus far. The patient does appear willing to adhere to ACT services and Substance Abuse follow up at this time. His family is reluctant to support him financially in the event that he continues to refuse residential treatment at [facility], however, they continue to offer this as an option if he changes his mind. Objective - Appearance Appearance: Thin Framed Dysmorphic Features: No Hygiene: Normal Grooming: Fairly Well Kept - Behavior Psychomotor Activities: Normal Exhibits Abnormal Movement: No - Attitude and Relatedness Attitude and Relatedness: Minimally Cooperative Eye Contact: Fair - Speech Quality: Pressured Latencies: Short Quantity: Copious - Mood Patient's Decription of Mood: "Okay" - Affect Observed Affect: Tense Affect Consistent with: Euthymia - Thought Process Patient's Thought Process: Circumstantial Thought Content: Yes Paranoid Ideation, No Passive Wish, No Suicidal Planning, No Homicidal Ideation - Sensorium Experiencing Hallucinations: No, Sensorium is Clear Type of Hallucinations: Visual: No, Auditory: No, Command: No - Level of Consciousness Level of Consciousness: Alert Orientation: Yes Intact, Yes Orientated to Time, Yes Orientated to Place, Yes Orientated to Person - Impulse Control Impulse Control: Poor - Insight and Judgement Insight and Judgement: Impaired - Group Participation Particating in Group Activities: Yes - Medication Management Medication Management Adherence: Yes Assessment - Assessment Merits Inpatient Hospitalization: For Immediate Safety, For Stabilization Inpatient DSM-IV Dx: Unspecified Psychotic DO. Alcohol use d/o Clinical Impression: 35 y.o. single, white male with a history of psychosis and affective problems who arrives via EMS after his parents called 911 due to his paranoia, agitation and significant lack of self care. Plan - Plan Treatment Plan: Name: David HOPE Birthdate: 1980 [id number] The patient so far appears to be tolerating aripiprazole Maintana 300mg IM q4wks well. The team is encouraging him to accept a residential treatment placement, however, he is declining this in favor of discharge directly to his home. ACT services and substance abuse outpatient care at [facility] may be considered. Continued Medication Management: Start Medication Medications: Current Medications Aripiprazole (Earnest Maintena (Nf)) 300 mg IM Q28D [facility] Last Admin: 11/08/16 16:07 Dose: 300 mg - Discharge Plan Discharge Plan: Inpatient Hospitalization
--- NOTE | 2016-12-05 14:18 | PN ---
Subjective - Subjective Service Type: [id number] Hosp care 15 min low complexity Subjective: The patient is argumentative but willing to entertain the idea of following up with ACT Team and [employer] program. He is managing ADLs and attending milieu activities consistently. Objective - Appearance Appearance: Thin Framed Dysmorphic Features: No Hygiene: Normal Grooming: Fairly Well Kept - Behavior Psychomotor Activities: Normal Exhibits Abnormal Movement: No - Attitude and Relatedness Attitude and Relatedness: Minimally Cooperative Eye Contact: Fair - Speech Quality: Pressured Latencies: Short Quantity: Copious - Mood Patient's Decription of Mood: "Fine" - Affect Observed Affect: Tense Affect Consistent with: Euthymia - Thought Process Patient's Thought Process: Coherent Thought Content: Yes Paranoid Ideation, No Passive Wish, No Suicidal Planning, No Homicidal Ideation - Sensorium Experiencing Hallucinations: No, Sensorium is Clear Type of Hallucinations: Visual: No, Auditory: No, Command: No - Level of Consciousness Level of Consciousness: Alert Orientation: Yes Intact, Yes Orientated to Time, Yes Orientated to Place, Yes Orientated to Person - Impulse Control Impulse Control: Tenuous - Insight and Judgement Insight and Judgement: Fair - Group Participation Particating in Group Activities: Yes - Medication Management Medication Management Adherence: Yes Assessment - Assessment Merits Inpatient Hospitalization: Consolid[facility] Improvements, Pending Safe DC Plan Inpatient DSM-IV Dx: Unspecified Psychotic DO. Alcohol use d/o Clinical Impression: 35 y.o. single, white male with a history of psychosis and affective problems who arrives via EMS after his parents called 911 due to his paranoia, agitation and significant lack of self care. Plan - Plan Treatment Plan: Name: David HOPE Birthdate: 1980 [id number] The patient so far appears to be tolerating aripiprazole Maintana 300mg IM q4wks well. The team is encouraging him to accept a residential treatment placement, however, he is declining this in favor of discharge directly to his home. ACT services and substance abuse outpatient care at [facility] may be considered. Continued Medication Management: Start Medication Medications: Current Medications Aripiprazole (Clairlikaitlyn Fioretena (Nf)) 300 mg IM Q28D [facility] Last Admin: 11/08/16 16:07 Dose: 300 mg - Discharge Plan Discharge Plan: Inpatient Hospitalization
--- NOTE | 2016-12-06 15:42 | PN ---
Subjective - Subjective Service Type: [id number] Hosp care 15 min low complexity Subjective: The patient is future-oriented, making plans to turn on his phone and get groceries, as well as get some working appliances. His parents are repairing the plumbing in his house. He is less argumentative today and insight appears better. Objective - Appearance Appearance: Thin Framed Dysmorphic Features: No Hygiene: Normal Grooming: Fairly Well Kept - Behavior Psychomotor Activities: Normal Exhibits Abnormal Movement: No - Attitude and Relatedness Attitude and Relatedness: Cooperative Eye Contact: Fair - Speech Quality: Unpressured Latencies: Normal Quantity: Appropriate - Mood Patient's Decription of Mood: "Okay" - Affect Observed Affect: Fair Affect Consistent with: Euthymia - Thought Process Patient's Thought Process: Coherent Thought Content: No Passive Wish, No Suicidal Planning, No Homicidal Ideation, No Paranoid Ideation - Sensorium Experiencing Hallucinations: No, Sensorium is Clear Type of Hallucinations: Visual: No, Auditory: No, Command: No - Level of Consciousness Level of Consciousness: Alert Orientation: Yes Intact, Yes Orientated to Time, Yes Orientated to Place, Yes Orientated to Person - Impulse Control Impulse Control: Tenuous - Insight and Judgement Insight and Judgement: Fair - Group Participation Particating in Group Activities: Yes - Medication Management Medication Management Adherence: Yes Assessment - Assessment Merits Inpatient Hospitalization: Cons[facility] Improvements, Pending Safe DC Plan Inpatient DSM-IV Dx: Unspecified Psychotic DO. Alcohol use d/o Clinical Impression: 35 y.o. single, white male with a history of psychosis and affective problems who arrives via EMS after his parents called 911 due to his paranoia, agitation and significant lack of self care. Plan - Plan Treatment Plan: Name: David HOPE Birthdate: 1980 [id number] The patient so far appears to be tolerating aripiprazole Maintana 300mg IM q4wks well. Will get second dose today. ACT services and substance abuse outpatient care at [facility] are being arranged. Continued Medication Management: Start Medication Medications: Current Medications Aripiprazole (Clairlifdina Maintena (Nf)) 300 mg IM Q28D [facility] Last Admin: 12/06/16 14:48 Dose: 300 mg - Discharge Plan Discharge Plan: Outpatient Follow Up
[2016-12-07] MEDS ORDERED: Acetaminophen TAB* 325 MG ONE (23:06)
[2016-12-07] MEDS: Acetaminophen TAB* 325 MG PO PRN (23:19)
[2016-12-08] MEDS ORDERED: Acetaminophen TAB* 325 MG ONE (12:08)
[2016-12-08] MEDS: Acetaminophen TAB* 325 MG PO PRN (12:08)
--- NOTE | 2016-12-09 12:06 | PN ---
Subjective - Subjective Service Type: [id number] Hosp care 15 min low complexity Subjective: The patient is resting comfortably in his room, currently on room-restriction secondary to having influenza. He states that he is feeling better today and is looking forward to meeting with the ACT team tomorrow to start putting together a workable discharge plan. Objective - Appearance Appearance: Thin Framed Dysmorphic Features: No Hygiene: Normal Grooming: Fairly Well Kept - Behavior Psychomotor Activities: Normal Exhibits Abnormal Movement: No - Attitude and Relatedness Attitude and Relatedness: Cooperative Eye Contact: Good - Speech Quality: Unpressured Latencies: Normal Quantity: Appropriate - Mood Patient's Decription of Mood: "Okay" - Affect Observed Affect: Fair Affect Consistent with: Euthymia - Thought Process Patient's Thought Process: Coherent Thought Content: No Passive Wish, No Suicidal Planning, No Homicidal Ideation, No Paranoid Ideation - Sensorium Experiencing Hallucinations: No, Sensorium is Clear Type of Hallucinations: Visual: No, Auditory: No, Command: No - Level of Consciousness Level of Consciousness: Alert Orientation: Yes Intact, Yes Orientated to Time, Yes Orientated to Place, Yes Orientated to Person - Impulse Control Impulse Control: Tenuous - Insight and Judgement Insight and Judgement: Fair - Group Participation Particating in Group Activities: Yes - Medication Management Medication Management Adherence: Yes Assessment - Assessment Merits Inpatient Hospitalization: Consolidate Improvements, Pending Safe DC Plan Inpatient DSM-IV Dx: Unspecified Psychotic DO. Alcohol use d/o Clinical Impression: 35 y.o. single, white male with a history of psychosis and affective problems who arrives via EMS after his parents called 911 due to his paranoia, agitation and significant lack of self care. Plan - Plan Treatment Plan: Name: David HOPE Birthdate: 1980 [id number] The patient so far appears to be tolerating aripiprazole Maintana 300mg IM q4wks well. ACT services will visit him here on the unit tomorrow (12/10) to arrange follow up. Substance abuse outpatient care at [facility] is likewise being arranged. Continued Medication Management: Start Medication Medications: Current Medications Acetaminophen (Tylenol Tab*) 650 mg PO Q6H PRN PRN Reason: FEVER/PAIN Last Admin: 12/08/16 12:08 Dose: 650 mg Aripiprazole (Abilifdina Maintena (Nf)) 300 mg IM Q28D [facility] Last Admin: 12/06/16 14:48 Dose: 300 mg - Discharge Plan Discharge Plan: Outpatient Follow Up
--- NOTE | 2016-12-10 08:59 | PN ---
Subjective - Subjective Service Type: [id number] Hosp care 15 min low complexity Subjective: The patient remains quarantined in his room due to his active influenza and still appears somewhat ill. He is eager to meet with ACT team representatives this afternoon, which he hopes to be an action in advance of discharge home. He still denies psychotic symptoms and feels that he would be able to meet his own needs safely in the community. Objective - Appearance Appearance: Thin Framed Dysmorphic Features: No Hygiene: Normal Grooming: Fairly Well Kept - Behavior Psychomotor Activities: Normal Exhibits Abnormal Movement: No - Attitude and Relatedness Attitude and Relatedness: Cooperative Eye Contact: Fair - Speech Quality: Unpressured Latencies: Normal Quantity: Appropriate - Mood Patient's Decription of Mood: "Okay" - Affect Observed Affect: Fair Affect Consistent with: Euthymia - Thought Process Patient's Thought Process: Coherent Thought Content: No Passive Wish, No Suicidal Planning, No Homicidal Ideation, No Paranoid Ideation - Sensorium Experiencing Hallucinations: No, Sensorium is Clear Type of Hallucinations: Visual: No, Auditory: No, Command: No - Level of Consciousness Level of Consciousness: Alert Orientation: Yes Intact, Yes Orientated to Time, Yes Orientated to Place, Yes Orientated to Person - Impulse Control Impulse Control: Tenuous - Insight and Judgement Insight and Judgement: Fair - Group Participation Particating in Group Activities: Yes - Medication Management Medication Management Adherence: Yes Assessment - Assessment Merits Inpatient Hospitalization: Consolidate Improvements, Pending Safe DC Plan Inpatient DSM-IV Dx: Unspecified Psychotic DO. Alcohol use d/o Clinical Impression: 35 y.o. single, white male with a history of psychosis and affective problems who arrives via EMS after his parents called 911 due to his paranoia, agitation and significant lack of self care. Plan - Plan Treatment Plan: Name: Daivd HOPE Birthdate: 1980 [id number] The patient so far appears to be tolerating aripiprazole Maintana 300mg IM q4wks well. ACT services will visit him here on the unit today to arrange follow up. Substance abuse outpatient care at [facility] is likewise being arranged. Continued Medication Management: Start Medication Medications: Current Medications Acetaminophen (Tylenol Tab*) 650 mg PO Q6H PRN PRN Reason: FEVER/PAIN Last Admin: 12/08/16 12:08 Dose: 650 mg Aripiprazole (Abilify Maintena (Fela)) 300 mg IM Q28D [facility] Last Admin: 12/06/16 14:48 Dose: 300 mg - Discharge Plan Discharge Plan: Outpatient Follow Up
--- NOTE | 2016-12-11 15:04 | PN ---
Subjective - Subjective Service Type: [id number] Hosp care 15 min low complexity Subjective: The patient remains on droplet precautions secondary to influenza. His meeting with ACT services could not occur yesterday as their representatives, who came to the unit specifically to meet him, were wary of getting the flu and postponed his intake until next Friday. The patient is disappointed by this and frustrated about being stuck in his room, however, he is still agreeing to ACT follow up after d/c. Objective - Appearance Appearance: Thin Framed Dysmorphic Features: No Hygiene: Normal Grooming: Fairly Well Kept - Behavior Psychomotor Activities: Normal Exhibits Abnormal Movement: No - Attitude and Relatedness Attitude and Relatedness: Cooperative Eye Contact: Fair - Speech Quality: Unpressured Latencies: Normal Quantity: Appropriate - Mood Patient's Decription of Mood: "Okay" - Affect Observed Affect: Fair Affect Consistent with: Euthymia - Thought Process Patient's Thought Process: Coherent Thought Content: No Passive Wish, No Suicidal Planning, No Homicidal Ideation, No Paranoid Ideation - Sensorium Experiencing Hallucinations: No, Sensorium is Clear Type of Hallucinations: Visual: No, Auditory: No, Command: No - Level of Consciousness Level of Consciousness: Alert Orientation: Yes Intact, Yes Orientated to Time, Yes Orientated to Place, Yes Orientated to Person - Impulse Control Impulse Control: Tenuous - Insight and Judgement Insight and Judgement: Fair - Group Participation Particating in Group Activities: Yes - Medication Management Medication Management Adherence: Yes Assessment - Assessment Merits Inpatient Hospitalization: Consolidate Improvements, Pending Safe DC Plan Inpatient DSM-IV Dx: Unspecified Psychotic DO. Alcohol use d/o Clinical Impression: 35 y.o. single, white male with a history of psychosis and affective problems who arrives via EMS after his parents called 911 due to his paranoia, agitation and significant lack of self care. Plan - Plan Treatment Plan: Name: David HOPE Birthdate: 1980 [id number] The patient so far appears to be tolerating aripiprazole Maintana 300mg IM q4wks well. ACT services will visit him here on the unit Friday, (12/17) to arrange follow up. Substance abuse outpatient care at [facility] is likewise being arranged. Continued Medication Management: Start Medication Medications: Current Medications Acetaminophen (Tylenol Tab*) 650 mg PO Q6H PRN PRN Reason: FEVER/PAIN Last Admin: 12/08/16 12:08 Dose: 650 mg Aripiprazole (Earnest Rice (Fela)) 300 mg IM Q28D [facility] Last Admin: 12/06/16 14:48 Dose: 300 mg - Discharge Plan Discharge Plan: Outpatient Follow Up
--- NOTE | 2016-12-13 11:01 | PN ---
Subjective - Subjective Service Type: [id number] Hosp care 15 min low complexity Subjective: Raul remains on droplet precautions due to influenza for the remainder of today and then will be released from quarantine. The plan is for us to meet with his family on Friday (12/16) and for him to meet with the ACT team that same day in order to set up aftercare. He demonstrates no evidence of psychotic thought process and presents as calm and reasonable. Objective - Appearance Appearance: Thin Framed Dysmorphic Features: No Hygiene: Normal Grooming: Fairly Well Kept - Behavior Psychomotor Activities: Normal Exhibits Abnormal Movement: No - Attitude and Relatedness Attitude and Relatedness: Cooperative Eye Contact: Fair - Speech Quality: Unpressured Latencies: Normal Quantity: Appropriate - Mood Patient's Decription of Mood: "Fine" - Affect Observed Affect: Fair Affect Consistent with: Euthymia - Thought Process Patient's Thought Process: Coherent Thought Content: No Passive Wish, No Suicidal Planning, No Homicidal Ideation, No Paranoid Ideation - Sensorium Experiencing Hallucinations: No, Sensorium is Clear Type of Hallucinations: Visual: No, Auditory: No, Command: No - Level of Consciousness Level of Consciousness: Alert Orientation: Yes Intact, Yes Orientated to Time, Yes Orientated to Place, Yes Orientated to Person - Impulse Control Impulse Control: Tenuous - Insight and Judgement Insight and Judgement: Fair - Group Participation Particating in Group Activities: Yes - Medication Management Medication Management Adherence: Yes Assessment - Assessment Merits Inpatient Hospitalization: Pending Safe DC Plan Inpatient DSM-IV Dx: Unspecified Psychotic DO. Alcohol use d/o Clinical Impression: 35 y.o. single, white male with a history of psychosis and affective problems who arrives via EMS after his parents called 911 due to his paranoia, agitation and significant lack of self care. Plan - Plan Treatment Plan: Name: David HOPE Birthdate: 1980 [id number] The patient so far appears to be tolerating aripiprazole Maintana 300mg IM q4wks well. ACT services will visit him here on the unit Friday, (12/17) to arrange follow up and we will hold another meeting with his family then. Substance abuse outpatient care at [facility] is likewise being arranged. Continued Medication Management: Start Medication Medications: Current Medications Acetaminophen (Tylenol Tab*) 650 mg PO Q6H PRN PRN Reason: FEVER/PAIN Last Admin: 12/08/16 12:08 Dose: 650 mg Aripiprazole (Earnest Rice (Fela)) 300 mg IM Q28D [facility] Last Admin: 12/06/16 14:48 Dose: 300 mg - Discharge Plan Discharge Plan: Outpatient Follow Up
--- NOTE | 2016-12-16 11:06 | PN ---
[facility]: Group Therapy Note - Service Type Service Type: [id number] Group Psychotherapy - Cognitive Behavioral Group Therapy ( CBT):Patient was attentive and participatory in CBT programming this morning, and remained in good behavioral control. Patient expressed positive insights regarding relevant treatment interventions and goals.
--- NOTE | 2016-12-16 15:29 | PN ---
Subjective - Subjective Service Type: [id number] [facility] Subjective: Today we held the fourth, and likely final meeting between Raul, the treatment team and members of his family. He is more succinct and less argumentative today but continues to suggest that he will self-discontinue his Abilify injection after d/c. The ACT team is set to perform his intake tomorrow, 12/17, and he will be cleared for discharge home thereafter. His parents and sister, who are all in attendance, confirm that the have corrected some of the more serious with Raul's home, such as the plumbing, and that it is now fit to inhabit. Raul is reality and future oriented, talking about getting a job and perhaps selling or renting his house. Objective - Appearance Appearance: Thin Framed Dysmorphic Features: No Hygiene: Normal Grooming: Well Kept - Behavior Psychomotor Activities: Normal Exhibits Abnormal Movement: No - Attitude and Relatedness Attitude and Relatedness: Cooperative Eye Contact: Good - Speech Quality: Unpressured Latencies: Normal Quantity: Appropriate - Mood Patient's Decription of Mood: "Fine" - Affect Observed Affect: Fair Affect Consistent with: Euthymia - Thought Process Patient's Thought Process: Coherent Thought Content: No Passive Wish, No Suicidal Planning, No Homicidal Ideation, No Paranoid Ideation - Sensorium Experiencing Hallucinations: No, Sensorium is Clear Type of Hallucinations: Visual: No, Auditory: No, Command: No - Level of Consciousness Level of Consciousness: Alert Orientation: Yes Intact, Yes Orientated to Time, Yes Orientated to Place, Yes Orientated to Person - Impulse Control Impulse Control: Tenuous - Insight and Judgement Insight and Judgement: Fair - Group Participation Particating in Group Activities: Yes - Medication Management Medication Management Adherence: Yes Assessment - Assessment Merits Inpatient Hospitalization: Consolidate Improvements, Pending Safe DC Plan Inpatient DSM-IV Dx: Unspecified Psychotic DO. Alcohol use d/o Clinical Impression: 35 y.o. single, white male with a history of psychosis and affective problems who arrives via EMS after his parents called 911 due to his paranoia, agitation and significant lack of self care. Plan - Plan Treatment Plan: Name: David HOPE Birthdate: 1980 [id number] The patient so far appears to be tolerating aripiprazole Maintana 300mg IM q4wks well. ACT services will visit him here on the unit Friday, (12/18) to arrange follow up. Substance abuse outpatient care at [facility] is likewise being arranged. Continued Medication Management: Start Medication Medications: Current Medications Acetaminophen (Tylenol Tab*) 650 mg PO Q6H PRN PRN Reason: FEVER/PAIN Last Admin: 12/08/16 12:08 Dose: 650 mg Aripiprazole (Earnest Rice (Fela)) 300 mg IM Q28D [facility] Last Admin: 12/06/16 14:48 Dose: 300 mg - Discharge Plan Discharge Plan: Outpatient Follow Up
[2016-12-17 07:55] VITALS: BP 112/76
--- NOTE | 2016-12-17 11:57 | PN ---
[facility]: Group Therapy Note - Service Type Service Type: [id number] Group Psychotherapy - Cognitive Behavioral Group Therapy ( CBT):Patient was attentive and participatory in CBT programming this morning, and remained in good behavioral control. Patient expressed positive insights regarding relevant treatment interventions and goals.
--- NOTE | 2016-12-18 03:41 | DS ---
DISCHARGE SUMMARY: DATE OF ADMISSION: 10/23/16 DATE OF DISCHARGE: 12/17/16 DISCHARGE DIAGNOSES: Are as follows: [place] I: Unspecified psychotic disorder, alcohol use disorder. [place] II: Deferred. [place] III: Elevated liver enzymes. [place] IV: Severe primary support stressors. [place] V: At the time of admission was 46 and at the time of discharge was 60. CONDITION AT THE TIME DISCHARGE: Stable. The patient is calm, cooperative. He no longer shows any evidence of paranoia, hallucinations, or internal distractibility. He is reality focused and talks spontaneously about important matters related to self-care such as getting a job, taking care of his kitchen, buying food for himself, and paying his bills. Furthermore, he is in agreement with the outpatient plan to get him intensive outpatient services through the [facility] or the ACT team. The ACT team customer service representative teller had visited him on the unit on the date of discharge and set up the ground rules for further work in the community. In addition, he is accepting of outpatient substance abuse treatment at the [facility] in [place], [place]. We have had several discharge planning meetings with the patient's parents as well as his sister and they are mutually in agreement with the discharge plan. The patient denies suicidal or homicidal ideations and he denies any cravings for further alcohol use. MENTAL STATUS EXAMINATION: The patient is a young white male with long straggly brown hair, jesus, and he has piercings in his ears. His hair is thinning and he is moderately well groomed. He is calm and cooperative and expressive with speech that reveals normal rate, tone, and volume. Mood appears to be euthymic with a full affect. Thought process is linear, goal- directed, and he speaks succinctly, which is something that he did not do at the time of admission. Thought content is significant for his desire to follow up with ACT services as well as substance abuse treatment in the community and he is eagerly looking forward to being discharged from the hospital. He denies suicidal or homicidal ideations. He denies auditory or visual hallucinations and he has not been observed talking to himself on our unit in over a month. Insight and judgment appeared to be fair given his willingness to follow up with outpatient services. Cognitively, he is awake and alert with what would appear to be a slightly above average intellect on the basis of his academic history. DISCHARGE INSTRUCTIONS: To the patient are as follows: A. Medications. He is on aripiprazole Maintena 300 mg injected intramuscularly every 28 days, his next injection is due on 01/03/17. B. Diet is regular. C. Activities as tolerated. The patient is a nonsmoker. D. Followup care. The patient will follow up starting tomorrow with the [facility]. They will meet his at his place of residence here in [place]. In addition, he has an intake appointment at [facility], scheduled for , 12/19/16. HOSPITAL COURSE: As follows: Part A: Reason for admission: The patient is a 35-year-old single white male with a history of psychotic illness, who was referred to the hospital via 911 when his family called due to his agitation and lack of self-care. According to the patient's mother, he was in her family home lying in the position cursing and yelling, although when the patient was asked about this, he referred to this as "lamenting." The patient, apparently, has a long history of undiagnosed and untreated mental illness and according to his mother, he is paranoid of food, the legal system, and the mental health system as well as his family. The patient presented as grandiose and was bragging about his high IQ and stating that this was all a misunderstanding based on his "violent rhetoric , which scares people." As I was interviewing him, he was hyperverbal and had long straggly hair, although he had just taken a shower. He gave me a stack of papers written very neatly in different colored markers, which described in detail the vegan meals that he had been preparing for himself over the last several weeks. I was looking at a history from Dr. Jim Singh dated November 2012 and it essentially described a similar presentation of a patient who had very little insight and was not interested in receiving medication or formal treatment. The patient denied suicidal ideations at this time and he went through great length to show me that he was future oriented indicating that he wants to prepare certain kinds of foods. He stated that he had been staying with his parents for the past 6 weeks only because there were snow in the driveway at his house and he described his parents as loving, but overprotective and essentially misunderstanding his artistic temperament. His parents could not be reached for further collateral at the time of admission. Part B: Psychiatric treatment rendered: The patient was admitted to the adult behavioral health unit, where he was placed on q.30-minute checks for his own safety. He refused treatment with low-dose antipsychotic therapy indicating that he did not feel that he had a mental illness. I was visited by his sister , [place], on the unit and she brought photographs of his home residence, which essentially showed a scene that was full of garbage and trash, it was disheveled and he had used paint and at times what appeared to be blood to scrawl both homicidal and suicidal messages on the merchant of his dining room, kitchen, and living quarters. She went on to report that the plumbing was broken down and that heaps of trash had essentially dissolved into the floor boards and that the house was essentially uninhabitable. There were weapons also seen strewn about the apartment including a fashion new and several ancients what appeared to be antique weaponry such as swords and rich axe. Under one of the rich axes, he had scrawled in his own writing that his sister deserved a fate worse than . Out of these concerns, we again approached him regarding his willingness to accept antipsychotic therapy, but he indicated that this was against his morals. He did not feel that treatment was warranted and so we set up a court date to pursue treatment over his objection. His father, Royal Del Toro, testified during that court hearing that the patient was often paranoid of people hacking his car and would call them from the community to come and rescue him. They also noted that he was often talking to himself, which was clearly easily observed on our own unit. For these considerations, the hospital won its court case and we started him on a trial of oral aripiprazole followed by an injectable Abilify Maintena shot of 300 mg, first administered on the 08 of November. A followup dose was given on the 06 of December. He appeared to tolerate this quite well and we did notice marked improvement in terms of his thought organization whereas prior to this, he had been highly circumstantial talking at great length without getting to the point. His thought process after medication appeared to become much more linear and goal- directed. In addition to this, we noticed that his appetite improved and that his color and skin turgor appeared to be much healthier as the hospitalization went on. Further concern was his alcohol consumption as his parents brought in several photographs of his home as well as the room. He was using it at their house as well as the backseat of his car , which were strewn with empty alcohol bottles. His liver enzymes were grossly abnormally elevated at the time of admission and did trend downwards as the admission proceeded. His hepatitis B and C tests were negative indicating that these liver problems were likely alcohol-induced. The patient did accept that alcohol is an unhealthy presence in his life and he was agreeable with outpatient treatment referrals made at the time of discharge. It is notable that we did try to convince him to agree to long-term residential treatment, but he is declining this at the time. His parents are indicating that they are no longer willing to financially enable his alcoholic lifestyle, which we feel is a healthy move towards the future. It is interesting that we had no fewer than 4 family meetings attended, the first two being attended by his father and sister, the last two being attended by his father, sister, and mother. Ultimately, although there were some disagreements about the need for continued hospitalization, the family did agree to collaborate and work with each other on an ongoing basis following discharge. At this time, we feel like Raul is considerably healthier than his time of admission. Although his insight is not perfect, we feel that he is making good choices and would be able to function in a healthy way in the community as long as he receives ongoing services from the ACT team. [id number]/[facility] #: [id number] IRAIS
== END 2016-12-17 14:40 | disposition home or self-care (01) | DRG 751 ==
LOC: ED 10:54 → BSU 10-23 14:27
PROVIDERS: ADMIT Psychiatry & Neurology Psychiatry; ATTEND Psychiatry & Neurology Psychiatry
PROC: GZHZZZZ Group Psychotherapy (ICD-10-PCS; principal; 2016-10-30)
PROC: HZ2ZZZZ Detoxification Services for Substance Abuse Treatment (ICD-10-PCS; 2016-10-30)
DX: F23 Brief psychotic disorder (principal); F17.200 Nicotine dependence, unspecified, uncomplicated; Z72.89 Other problems related to lifestyle; R74.8 Abnormal levels of other serum enzymes; Z81.8 Family history of other mental and behavioral disorders; Z81.1 Family history of alcohol abuse and dependence
CPT/HCPCS: 36415; 80053; 80061; 80074; 80320; 80329; 82607; 83036; 84425; 84443; 85025; 85610; 85730; 87502; 90847; 90853; 99222; 99231; 99232; 99233; 99238; 99285; 99406; A9270-GY; G0480

== ENCOUNTER 2017-11-12 20:31 | Emergency (ER) | payer MEDICAID, OTHER ==
[2017-11-12] MEDS ORDERED: NS 0.9% 1000 ML* 1,000 ML IV ONE (21:24)
[2017-11-12 23:35] VITALS: BP 119/89
--- NOTE | 2017-11-13 01:28 | ED ---
Skin Complaint - HPI Summary HPI Summary: Patient presents to the ED with bruising and bleeding from the face. He states 2 nights ago he awoke to find himself covered in blood with "lacerations to the face." He took a shower and tried to go back to bed, but states he was bleeding to bad. He does not recall what happened. C/o insomnia recently and states he doesn't recall much about when he actually went to bed, awoke and noticed the bleeding. Blood was on the hallway floor as well. He states he slept all day yesterday and awoke again with worsening blood. He feels as though the wounds scabbed over and now were re-opening. He left it bleeding all day and states after he could not stop the bleeding, he decided to come to the ED. PMHx includes psych history. Denies SI/HI. He denies any previous episodes of known sleep walking, but states this must have caused it. He seems to be afraid of the prospect that he doesn't remember what happened, but states a similar episode happened 1 year ago and awoke with an injury to the L eyebrow. Denies any drug or ETOH use. - History of Current Complaint Chief Complaint: EDGeneral Time Seen by Provider: 11/12/17 21:14 Stated Complaint: FACIAL INJURY Hx Obtained From: Patient Onset/Duration: Started Hours Ago Skin Exposure Onset/Duration: Hours Ago Timing: Constant Onset Severity: Moderate Current Severity: Moderate Pain Intensity: 0 Pain Scale Used: 0-10 Numeric Skin Location: Face Aggravating Symptom(s): Nothing, Touch Alleviating Symptom(s): Nothing Related History: Trauma - Additional Pertinent History Primary Care Physician: [id number] - Allergy/Home Medications Allergies/Adverse Reactions: Allergies Allergy/AdvReac Type Severity Reaction Status Date / Time No Known Allergies Allergy Verified 11/12/17 20:49 PMH/Surg Hx/FS Hx/Imm Hx Previously Healthy: Yes Psychiatric History: Denies: Hx Eating Disorder, Hx of Violent Episodes Against Others - Surgical History Surgery Procedure, Year, and Place: Pt denies any surgical history - Immunization History Hx Pertussis Vaccination: No Immunizations Up to Date: Unable to Obtain/Confirm Infectious Disease History: No Infectious Disease History: Denies: Traveled Outside the [place] in Last 30 Days - Family History Known Family History: Positive: None - Social History Occupation: Unemployed Lives: Alone Alcohol Use: None Hx Substance Use: No Substance Use Type: Reports: None Hx Tobacco Use: Yes Smoking Status (MU): Former Smoker Length of Time of Smoking/Using Tobacco: a long time Have You Smoked in the Last Year: Yes Review of Systems Constitutional: Negative Negative: Fever, Chills, Fatigue, Skin Diaphoresis Eyes: Negative Cardiovascular: Negative Gastrointestinal: Negative Positive: no symptoms reported, see HPI Positive: Other Neurological: Negative Positive: Anxious All Other Systems Reviewed And Are Negative: Yes Physical Exam Triage Information Reviewed: Yes Vital Signs On Initial Exam: Initial Vitals Temp Pulse Resp BP Pulse Ox 97.8 F 137 16 107/54 96 11/12/17 20:35 11/12/17 20:35 11/12/17 20:35 11/12/17 20:35 11/12/17 20:35 Vital Signs Reviewed: Yes Appearance: Positive: Well-Appearing, Well-Nourished, Signs of Trauma Skin: Positive: Other - abrasion to the left lower chin, small laceration to the R eyebrow, ecchymosis around the R eye Head/Face: Positive: Normal Head/Face Inspection Eyes: Positive: EOMI, LANCE, Conjunctiva Clear Neck: Positive: Nontender, No Lymphadenopathy Respiratory/Lung Sounds: Positive: Clear to Auscultation, Breath Sounds Present Cardiovascular: Positive: RRR, Pulses are Symmetrical in both Upper and Lower Extremities Musculoskeletal: Positive: Normal, Strength/ROM Intact Neurological: Positive: Speech Normal Psychiatric: Positive: Normal, Affect/Mood Appropriate AVPU Assessment: Alert Diagnostics - Vital Signs Vital Signs Temp Pulse Resp BP Pulse Ox 11/12/17 23:05 99.1 F 125 16 119/89 98 11/12/17 23:00 122 119/89 97 11/12/17 22:30 111/79 11/12/17 22:19 132 95 11/12/17 22:00 131 102/82 94 11/12/17 21:42 130 93 11/12/17 21:40 118/82 11/12/17 20:35 97.8 F 137 16 107/54 96 - Laboratory Lab Statement: Any lab studies that have been ordered have been reviewed, and results considered in the medical decision making process. Course/Dx - Course Course Of Treatment: During the course of treatment, patient is bleeding on arrival. His jesus was shaved and we identified a large 3x4cm abrasion to the L lower chin which continues to bleed. pressure applied x 30 minutes. Cleaned well. Clot formed and dislodged. Discussed with patient at length the possiblities of the etiology of the injury, but patient was unable to recall the events. D/t 2 day history of no other physical or neuro symptoms, CT was not obtained. Surgicel applied to the chin and gauze wrapped. He will continue this x 3 days. He is to get a wound check in 3 days if any symptoms worsen. He is Ok for discharge at this time. - Diagnoses Provider Diagnoses: Chin abrasion, non-infected Discharge - Discharge Plan Condition: Stable Disposition: HOME Patient Education Materials: Acute Wound Care (ED), Abrasion (ED) Referrals: No Primary Care Phys,NOPCP [Primary Care Provider] - Additional Instructions: Keep the surgicel onto the wound Wrap with a bandage Keep bandage applied x 4 days and change out bandage every day May get the wound wet The wound will heal and will eventually scab over Return to the ED if symptoms worsen Images - Images Head: 1 - laceration 1.0cm superficial 2 - 3cm in length, 2cm width deep abrasion 3 - ecchymosis with slight swelling
--- NOTE | 2017-11-13 01:47 | PN ---
Progress Note - Progress Note Date of Service: 11/12/17 Note: Upon patient arrival, tachy at 137 which reduced to 122 while in the ED. I have continued to offer fluids and IV which patient continues to refuse. He was able to drink 3 - 20oz bottles of water while in the ED Also refuses maxillofacial and brain CT. Other VS stable.
== END 2017-11-12 23:15 | disposition home or self-care (01) ==
LOC: ED 20:31
DX: S00.81XA Abrasion of other part of head, initial encounter (principal); X58.XXXA Exposure to other specified factors, initial encounter; Y92.9 Unspecified place or not applicable; Z87.891 Personal history of nicotine dependence
CPT/HCPCS: 99283

== ENCOUNTER 2017-11-25 16:14 | Inpatient (IN) | payer OTHER ==
[2017-11-25] MEDS ORDERED: Haloperidol INJ IV/IM* 5 MG/ML AMP ONE (17:15)
[2017-11-25] MEDS ORDERED: diPHENhydraMINE IV* 50 MG/ML 1 ml VIAL (BENADRYL) ONE (17:15)
[2017-11-25] MEDS ORDERED: LORazepam INJ* 2 MG/ML 1 ML VIAL ONE (17:15)
[2017-11-25 18:33] LABS: ABS Basophils 0 10^3/ul (0-0.2); ABS Eosinophils 0 10^3/ul (0-0.6); ABS Lymphocytes 0.5 10^3/ul (1.0-4.8); ABS Monocytes 0.2 10^3/ul (0-0.8); ABS Neutrophils 1.6 10^3/ul (1.5-7.7); ABS Nucleated RBC 0 10^3/ul; Eosinophil % 1.5 % (0-6); Hematocrit 43 % (42-52); Lymphocyte % 20.9 % (25-47); Mean Corpuscular HGB Conc 35 g/dl (31-36); Mean Corpuscular Hemoglobin 35 pg (27-31); Mean Corpuscular Volume 99 fL (80-94); Mean Platelet Volume 7 um3 (7.4-10.4); Nucleated Red Blood Cells % 0.2; Platelet Count 236 10^3/ul (150-450); Red Blood Count 4.32 10^6/ul (4.0-5.4); Red Cell Distribution Width 12 % (10.5-15); White Blood Count 2.3 10^3/ul (3.5-10.8)
[2017-11-25 18:51] LABS: EGFR Non-African American 172.2 (>60)
[2017-11-26] MEDS ORDERED: Al Hydrox/Mg Hydrox/Simet LIQ* 30 ML UDC PO PRN (10:51)
[2017-11-26] MEDS ORDERED: Acetaminophen TAB* 325 MG PO PRN (10:51)
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
--- NOTE | 2017-11-26 11:44 | ED ---
Rick Muñoz Nilda, scribed for Sriram Gutierrez MD on 11/26/17 at 1101 . Progress - Progress Note Progress Note: Dr. Urias (Psychiatry) assessed the pt and he recommends admission to his services. Dx psychosis and disorganized thinking. - Consult/PCP Time Called: 06:00 Course/Dx - Course Course Of Treatment: Dr. Urias (Psychiatry) assessed the pt and he recommends admission to his services. Dx psychosis and disorganized thinking. - Diagnoses Provider Diagnoses: Psychosis, Aggressive behavior, Disorganized thinking The documentation as recorded by the Rick snyder Nilda accurately reflects the service I personally performed and the decisions made by , Sriram Gutierrez MD.
[2017-11-26] MEDS ORDERED: LORazepam TAB(*) 1 MG ONE (12:53)
[2017-11-26] MEDS ORDERED: LORazepam IM 0-6 mg for WAM protocol IM SCH (14:00)
[2017-11-26] MEDS: LORazepam PO 0-6 for WAM protocol PO SCH ×2 (14:13→18:33)
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
[2017-11-27] MEDS: Folic Acid TAB* 1 MG DAILY PO SCH (10:03)
[2017-11-27] MEDS: Thiamine TAB* 100 MG TAB DAILY (@ T+1) PO SCH (10:03)
--- NOTE | 2017-11-27 11:48 | PN ---
MHU: Group Therapy Note - Service Type Service Type: 73838 Group Psychotherapy - Cognitive Behavioral Group Therapy ( CBT):Patient attended CBT programming this morning and presented with flat affect that did not vary with discussion. Although responsive to direct prompts to respond to questions, patient did not engage in spontaneous conversation.
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
--- NOTE | 2017-11-27 16:34 | PN ---
MHU: Group Therapy Note - Service Type Service Type: 05834 Group Psychotherapy - Medication Education Group: Patient joined group late, remained in behavioral control. Patient noted to be circumstantial about substances that were not particularly on topic.
[2017-11-27] MEDS: ARIPiprazole TAB* 5 MG PO SCH (21:20)
[2017-11-28] MEDS: Folic Acid TAB* 1 MG DAILY PO SCH (09:50)
[2017-11-28] MEDS: Thiamine TAB* 100 MG TAB DAILY (@ T+1) PO SCH (09:50)
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
[2017-11-28] MEDS: ARIPiprazole TAB* 5 MG PO SCH (20:25)
[2017-11-29] MEDS: Thiamine TAB* 100 MG TAB DAILY (@ T+1) PO SCH (08:23)
[2017-11-29] MEDS: Folic Acid TAB* 1 MG DAILY PO SCH (08:23)
[2017-11-29] MEDS: ARIPiprazole TAB* 5 MG PO SCH (20:21)
[2017-11-30] MEDS: Folic Acid TAB* 1 MG DAILY PO SCH (07:56)
[2017-11-30] MEDS: Thiamine TAB* 100 MG TAB DAILY (@ T+1) PO SCH (07:56)
--- NOTE | 2017-11-30 18:42 | PN ---
Subjective - Subjective Date of Service: 11/30/17 Service Type: 39974 Hosp care 15 min low complexity Subjective: Raul has been out in the milieu active in groups. Denies any problems, eating and sleeping well. Taking meds as prescribed and staffs report he is OK. Objective - Appearance Appearance: Thin Framed Dysmorphic Features: No Hygiene: Normal Grooming: Fairly Well Kept - Behavior Psychomotor Activities: Normal Exhibits Abnormal Movement: No - Attitude and Relatedness Attitude and Relatedness: Appropriate Eye Contact: Fair - Speech Quality: Unpressured Latencies: Normal Quantity: Appropriate - Mood Patient's Decription of Mood: "Okay" - Affect Observed Affect: Constricted Affect Consistent with: Dysphoria - Thought Process Patient's Thought Process: Coherent, Goal Directed Thought Content: No Passive Wish, No Suicidal Planning, No Homicidal Ideation, No Paranoid Ideation - Sensorium Experiencing Hallucinations: No, Sensorium is Clear Type of Hallucinations: Visual: No, Auditory: No, Command: No - Level of Consciousness Level of Consciousness: Alert Orientation: Yes Intact, Yes Orientated to Time, Yes Orientated to Place, Yes Orientated to Person - Impulse Control Impulse Control: Intact - Insight and Judgement Insight and Judgement: Fair - Group Participation Particating in Group Activities: Yes - Medication Management Medication Management Adherence: Yes Assessment - Assessment Merits Inpatient Hospitalization: For Stabilization, Pending Safe DC Plan Inpatient DSM-IV Dx: Schizoaffective DO, bipolar type Plan - Plan Treatment Plan: Name: David HOPE Birthdate: 1980 [id number] Continued Medication Management: Continue Outpt Medication Medications: Current Medications Acetaminophen (Tylenol Tab*) 650 mg PO Q4H PRN PRN Reason: for pain; or Temp >101 F Al Hydrox/Mg Hydrox/Simethicone (Maalox Plus*) 30 ml PO Q4H PRN PRN Reason: INDIGESTION Aripiprazole (Abilify Tab*) 5 mg PO BEDTIME [facility] Last Admin: 11/29/17 20:21 Dose: Not Given Folic Acid (Folvite Tab*) 1 mg PO DAILY [facility] Last Admin: 11/30/17 07:56 Dose: Not Given Lorazepam (Ativan Tab(*)) 0 - 6 mg PO .PER [facility] PRN Reason: Protocol Last Admin: 11/26/17 18:33 Dose: 2 mg Lorazepam (Ativan Inj*) 0 - 6 mg IM .PER [facility] PRN Reason: Protocol Thiamine HCl (Vitamin B-1 Tab*) 100 mg PO DAILY [facility] Last Admin: 11/30/17 07:56 Dose: Not Given - Discharge Plan Discharge Plan: Outpatient Follow Up Outpatient Program: [facility]
[2017-11-30] MEDS: ARIPiprazole TAB* 5 MG PO SCH (21:15)
[2017-12-01] MEDS: Thiamine TAB* 100 MG TAB DAILY (@ T+1) PO SCH (08:00)
[2017-12-01] MEDS: Folic Acid TAB* 1 MG DAILY PO SCH (08:00)
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
[2017-12-02] MEDS: Folic Acid TAB* 1 MG DAILY PO SCH (09:10)
[2017-12-02] MEDS: Thiamine TAB* 100 MG TAB DAILY (@ T+1) PO SCH (09:10)
--- NOTE | 2017-12-02 14:20 | PN ---
Subjective - Subjective Date of Service: 12/02/17 Service Type: 69665 Family Medical Psyc Subjective: Raul was seen for family meeting attended also by LYDIA Socorro Guadalupe, father , mother Ebonie and sister France. Raul is given an opportunity to express his thoughts about his condition and outline a plan for moving forward. He rejects residential, substance abuse or State Hospitalization and feels strongly that he should be discharged to his home in [facility]. He minimizes the severity of his physical condition and the condition of his home leading up to admission. As the meeting progresses he shows no ability to listen to others' points of view, including those of the treatment team or his family. His speech becomes more pressured and antagonistic. Ultimately he starts shouting at his sister and interrupting her, tearfully accusing her of trying to psychiatrically imprison him. He becomes openly hostile and insulting towards his parents and sister, screaming "You're so stupid!!!" He is thereafter escorted out of the meeting under the threat of us calling security. Raul is later informed that we will be referring him to the [facility], which he disagrees with. Objective - Appearance Appearance: Thin Framed Dysmorphic Features: No Hygiene: Normal Grooming: Disheveled - Behavior Psychomotor Activities: Abnormal-Decreased Exhibits Abnormal Movement: No - Attitude and Relatedness Attitude and Relatedness: Hostile Eye Contact: Poor - Speech Quality: Pressured Latencies: Short Quantity: Copious - Mood Patient's Decription of Mood: "Terrible" - Affect Observed Affect: Labile Affect Consistent with: Dysphoria - Thought Process Patient's Thought Process: Tangential Thought Content: Yes Paranoid Ideation, No Passive Wish, No Suicidal Planning, No Homicidal Ideation - Sensorium Experiencing Hallucinations: No, Sensorium is Clear Type of Hallucinations: Visual: No, Auditory: No, Command: No - Level of Consciousness Level of Consciousness: Agitated Orientation: Yes Intact, Yes Orientated to Time, Yes Orientated to Place, Yes Orientated to Person - Impulse Control Impulse Control: Poor - Insight and Judgement Insight and Judgement: Impaired - Group Participation Particating in Group Activities: No - Medication Management Medication Management Adherence: Yes Assessment - Assessment Merits Inpatient Hospitalization: For Immediate Safety, For Stabilization Inpatient DSM-V Dx: F25.0 Clinical Impression: 37 y.o. single, white male with a history of psychosis and alcohol use disorder , brought to the hospital on 9.45 legal status by the [facility] troopers following an altercation at his home with representatives of the ACT team. The patient presents as niurka, disheveled and jaundiced with paranoid delusions, is undernourished with low weight and has signs of agitation as well as preoccupation with internal stimuli. Plan - Plan Treatment Plan: Name: David HOPE Birthdate: 1980 [id number] We have resumed aripiprazole Maintena 400mg IM qmonthly (next injection due 12/29). Will pursue State Hospitalization. Continued Medication Management: Start Medication Medications: Current Medications Acetaminophen (Tylenol Tab*) 650 mg PO Q4H PRN PRN Reason: for pain; or Temp >101 F Al Hydrox/Mg Hydrox/Simethicone (Maalox Plus*) 30 ml PO Q4H PRN PRN Reason: INDIGESTION Aripiprazole (Abilify Maintena (Nf)) 400 mg IM Q28D [facility] Last Admin: 12/01/17 18:25 Dose: 400 mg Folic Acid (Folvite Tab*) 1 mg PO DAILY [facility] Last Admin: 12/02/17 09:10 Dose: Not Given Thiamine HCl (Vitamin B-1 Tab*) 100 mg PO DAILY [facility] Last Admin: 12/02/17 09:10 Dose: Not Given - Discharge Plan Discharge Plan: Consider Longer Term Tx Lab Results - Lab Results Lab Results: 12/01/17 12/01/17 06:25 06:25 Hemoglobin A1c 4.4 Triglycerides 140 Cholesterol 210 LDL Cholesterol 136 HDL Cholesterol 46.5
[2017-12-03] MEDS: Thiamine TAB* 100 MG TAB DAILY (@ T+1) PO SCH (09:37)
[2017-12-03] MEDS: Folic Acid TAB* 1 MG DAILY PO SCH (09:37)
--- NOTE | 2017-12-03 11:27 | PN ---
Subjective - Subjective Date of Service: 12/03/17 Service Type: 00674 Hosp care 15 min low complexity Subjective: Raul is withdrawn and laying under the covers of his bed, not going to groups and not interacting with staff or peers so far today. He is quite upset about the decision to refer him to the State and has requested an administrative hearing to resist it. He continues to demonstrate clear deficits in insight and judgment into his mental illness. When informed about the transfer decision he collapsed onto the floor and attempted to beg the manager social responsibility and I not to send him. He denies side effects from the injectable aripiprazole therapy. Objective - Appearance Appearance: Thin Framed Dysmorphic Features: No Hygiene: Normal Grooming: Disheveled - Behavior Psychomotor Activities: Abnormal-Decreased Exhibits Abnormal Movement: No - Attitude and Relatedness Attitude and Relatedness: Withdrawn Eye Contact: Poor - Speech Quality: Unpressured Latencies: Normal Quantity: Terse - Mood Patient's Decription of Mood: "Terrible" - Affect Observed Affect: Constricted Affect Consistent with: Dysphoria - Thought Process Patient's Thought Process: Coherent Thought Content: Yes Paranoid Ideation, No Passive Wish, No Suicidal Planning, No Homicidal Ideation - Sensorium Experiencing Hallucinations: No, Sensorium is Clear Type of Hallucinations: Visual: No, Auditory: No, Command: No - Level of Consciousness Level of Consciousness: Alert Orientation: Yes Intact, Yes Orientated to Time, Yes Orientated to Place, Yes Orientated to Person - Impulse Control Impulse Control: Poor - Insight and Judgement Insight and Judgement: Impaired - Group Participation Particating in Group Activities: No - Medication Management Medication Management Adherence: Yes Assessment - Assessment Merits Inpatient Hospitalization: For Immediate Safety, For Stabilization Inpatient DSM-V Dx: F25.0 Clinical Impression: 37 y.o. single, white male with a history of psychosis and alcohol use disorder , brought to the hospital on 9.45 legal status by the [facility] troopers following an altercation at his home with representatives of the ACT team. The patient presents as niurka, disheveled and jaundiced with paranoid delusions, is undernourished with low weight and has signs of agitation as well as preoccupation with internal stimuli. Plan - Plan Treatment Plan: Name: David HOPE Birthdate: 1980 [id number] We have resumed aripiprazole Maintena 400mg IM qmonthly (next injection due 12/29). Will pursue State Hospitalization. Continued Medication Management: Start Medication Medications: Current Medications Acetaminophen (Tylenol Tab*) 650 mg PO Q4H PRN PRN Reason: for pain; or Temp >101 F Al Hydrox/Mg Hydrox/Simethicone (Maalox Plus*) 30 ml PO Q4H PRN PRN Reason: INDIGESTION Aripiprazole (Abicornelius Maintena (Nf)) 400 mg IM Q28D [facility] Last Admin: 12/01/17 18:25 Dose: 400 mg Folic Acid (Folvite Tab*) 1 mg PO DAILY [facility] Last Admin: 12/03/17 09:37 Dose: Not Given Thiamine HCl (Vitamin B-1 Tab*) 100 mg PO DAILY [facility] Last Admin: 12/03/17 09:37 Dose: Not Given - Discharge Plan Discharge Plan: Consider Longer Term Tx Lab Results - Lab Results Lab Results: 12/01/17 12/01/17 06:25 06:25 Hemoglobin A1c 4.4 Triglycerides 140 Cholesterol 210 LDL Cholesterol 136 HDL Cholesterol 46.5
[2017-12-04] MEDS: Folic Acid TAB* 1 MG DAILY PO SCH (08:49)
[2017-12-04] MEDS: Thiamine TAB* 100 MG TAB DAILY (@ T+1) PO SCH (08:49)
--- NOTE | 2017-12-04 14:51 | PN ---
Subjective - Subjective Date of Service: 12/04/17 Service Type: [id number] Hosp care 35 min high complexity Subjective: Raul is seen by the treatment team, his senior quality control inspector and members of the hospital administration for an administrative hearing, pursuant to transfer to [facility] level intermediate care. Raul remains tangential with paranoid ideation and deficits in insight and judgment. He denies SI or HI. The lease administrator sided with the treatment team that Raul would benefit from State-level care. He denies side effects from medications. Objective - Appearance Appearance: Thin Framed Dysmorphic Features: No Hygiene: Normal Grooming: Fairly Well Kept - Behavior Psychomotor Activities: Abnormal-Decreased Exhibits Abnormal Movement: No - Attitude and Relatedness Attitude and Relatedness: argumentative Eye Contact: Good - Speech Quality: Pressured Latencies: Normal Quantity: Copious - Mood Patient's Decription of Mood: "Fine" - Affect Observed Affect: Tense Affect Consistent with: Dysphoria - Thought Process Patient's Thought Process: Tangential Thought Content: Yes Paranoid Ideation, No Passive Wish, No Suicidal Planning, No Homicidal Ideation - Sensorium Experiencing Hallucinations: No, Sensorium is Clear Type of Hallucinations: Visual: No, Auditory: No, Command: No - Level of Consciousness Level of Consciousness: Alert Orientation: Yes Intact, Yes Orientated to Time, Yes Orientated to Place, Yes Orientated to Person - Impulse Control Impulse Control: Poor - Insight and Judgement Insight and Judgement: Impaired - Group Participation Particating in Group Activities: Yes - Medication Management Medication Management Adherence: Yes Assessment - Assessment Merits Inpatient Hospitalization: For Immediate Safety, For Stabilization Inpatient DSM-V Dx: F25.0 Clinical Impression: 37 y.o. single, white male with a history of psychosis and alcohol use disorder , brought to the hospital on 45 legal status by the [employer] troopers following an altercation at his home with representatives of the ACT team. The patient presents as niurka, disheveled and jaundiced with paranoid delusions, is undernourished with low weight and has signs of agitation as well as preoccupation with internal stimuli. Plan - Plan Treatment Plan: Name: David HOPE Birthdate: 1980 [id number] We have resumed aripiprazole Maintena 400mg IM qmonthly (next injection due 12/29). Will pursue State Hospitalization. Continued Medication Management: Start Medication Medications: Current Medications Acetaminophen (Tylenol Tab*) 650 mg PO Q4H PRN PRN Reason: for pain; or Temp >101 F Al Hydrox/Mg Hydrox/Simethicone (Maalox Plus*) 30 ml PO Q4H PRN PRN Reason: INDIGESTION Aripiprazole (Earnest Mainalphonsea (Nf)) 400 mg IM Q28D [facility] Last Admin: 12/01/17 18:25 Dose: 400 mg Folic Acid (Folvite Tab*) 1 mg PO DAILY [facility] Last Admin: 12/04/17 08:49 Dose: Not Given Thiamine HCl (Vitamin B-1 Tab*) 100 mg PO DAILY [facility] Last Admin: 12/04/17 08:49 Dose: Not Given - Discharge Plan Discharge Plan: Consider Longer Term Tx
[2017-12-05] MEDS: Thiamine TAB* 100 MG TAB DAILY (@ T+1) PO SCH (08:02)
[2017-12-05] MEDS: Folic Acid TAB* 1 MG DAILY PO SCH (08:02)
--- NOTE | 2017-12-05 11:17 | PN ---
Subjective - Subjective Date of Service: 12/05/17 Service Type: 00707 Hosp care 15 min low complexity Subjective: Raul remains paranoid and withdrawn with poor insight. He is mostly isolative to his room with limited participation in group and milieu programming, apparently upset about his pending transfer to the [facility]. He denies SI or HI. Objective - Appearance Appearance: Thin Framed Dysmorphic Features: No Hygiene: Normal Grooming: Fairly Well Kept - Behavior Psychomotor Activities: Abnormal-Decreased Exhibits Abnormal Movement: No - Attitude and Relatedness Attitude and Relatedness: Withdrawn Eye Contact: Poor - Speech Quality: Unpressured Latencies: Normal Quantity: Terse - Mood Patient's Decription of Mood: "Upset" - Affect Observed Affect: Constricted Affect Consistent with: Dysphoria - Thought Process Patient's Thought Process: Coherent Thought Content: Yes Paranoid Ideation, No Passive Wish, No Suicidal Planning, No Homicidal Ideation - Sensorium Experiencing Hallucinations: No, Sensorium is Clear Type of Hallucinations: Visual: No, Auditory: No, Command: No - Level of Consciousness Level of Consciousness: Alert Orientation: Yes Intact, Yes Orientated to Time, Yes Orientated to Place, Yes Orientated to Person - Impulse Control Impulse Control: Poor - Insight and Judgement Insight and Judgement: Impaired - Group Participation Particating in Group Activities: No - Medication Management Medication Management Adherence: Yes Assessment - Assessment Merits Inpatient Hospitalization: For Immediate Safety, For Stabilization Inpatient DSM-V Dx: F25.0 Clinical Impression: 37 y.o. single, white male with a history of psychosis and alcohol use disorder , brought to the hospital on 9.[address] [facility] troopers following an altercation at his home with representatives of the ACT team. The patient presents as niurka, disheveled and jaundiced with paranoid delusions, is undernourished with low weight and has signs of agitation as well as preoccupation with internal stimuli. Plan - Plan Treatment Plan: Name: David HOPE Birthdate: 1980 [id number] We have resumed aripiprazole Maintena 400mg IM qmonthly (next injection due 12/29). Will pursue State Hospitalization. Continued Medication Management: Start Medication Medications: Current Medications Acetaminophen (Tylenol Tab*) 650 mg PO Q4H PRN PRN Reason: for pain; or Temp >101 F Al Hydrox/Mg Hydrox/Simethicone (Maalox Plus*) 30 ml PO Q4H PRN PRN Reason: INDIGESTION Aripiprazole (Earnest Rice (Nf)) 400 mg IM Q28D [facility] Last Admin: 12/01/17 18:25 Dose: 400 mg Folic Acid (Folvite Tab*) 1 mg PO DAILY [facility] Last Admin: 12/05/17 08:02 Dose: Not Given Thiamine HCl (Vitamin B-1 Tab*) 100 mg PO DAILY [facility] Last Admin: 12/05/17 08:02 Dose: Not Given - Discharge Plan Discharge Plan: Consider Longer Term Tx
[2017-12-06] MEDS: Thiamine TAB* 100 MG TAB DAILY (@ T+1) PO SCH (10:06)
[2017-12-06] MEDS: Folic Acid TAB* 1 MG DAILY PO SCH (10:06)
[2017-12-07] MEDS: Thiamine TAB* 100 MG TAB DAILY (@ T+1) PO SCH (08:06)
[2017-12-07] MEDS: Folic Acid TAB* 1 MG DAILY PO SCH (08:06)
--- NOTE | 2017-12-08 11:03 | PN ---
Subjective - Subjective Date of Service: 12/08/17 Service Type: 99962 Hosp care 15 min low complexity Subjective: Raul is more alert and cooperative today. He seems more resigned to his [facility]. He is tolerating aripiprazole Maintena well. His insight remains poor. Objective - Appearance Appearance: Thin Framed Dysmorphic Features: No Hygiene: Normal Grooming: Fairly Well Kept - Behavior Psychomotor Activities: Abnormal-Decreased Exhibits Abnormal Movement: No - Attitude and Relatedness Attitude and Relatedness: Dismissive Eye Contact: Fair - Speech Quality: Unpressured Latencies: Normal Quantity: Appropriate - Mood Patient's Decription of Mood: "Sad" - Affect Observed Affect: Constricted Affect Consistent with: Dysphoria - Thought Process Patient's Thought Process: Coherent, Tangential Thought Content: Yes Paranoid Ideation, No Passive Wish, No Suicidal Planning, No Homicidal Ideation - Sensorium Experiencing Hallucinations: No, Sensorium is Clear Type of Hallucinations: Visual: No, Auditory: No, Command: No - Level of Consciousness Level of Consciousness: Alert Orientation: Yes Intact, Yes Orientated to Time, Yes Orientated to Place, Yes Orientated to Person - Impulse Control Impulse Control: Tenuous - Insight and Judgement Insight and Judgement: Fair - Group Participation Particating in Group Activities: No - Medication Management Medication Management Adherence: Yes Assessment - Assessment Merits Inpatient Hospitalization: For Immediate Safety, For Stabilization Inpatient DSM-V Dx: F25.0 Clinical Impression: 37 y.o. single, white male with a history of psychosis and alcohol use disorder , brought to the hospital on 9.45 legal status by the [facility] troopers following an altercation at his home with representatives of the ACT team. The patient presents as niurka, disheveled and jaundiced with paranoid delusions, is undernourished with low weight and has signs of agitation as well as preoccupation with internal stimuli. Plan - Plan Treatment Plan: Name: David HOPE Birthdate: 1980 [id number] We have resumed aripiprazole Maintena 400mg IM qmonthly (next injection due 12/29). Will pursue State Hospitalization. Continued Medication Management: Start Medication Medications: Current Medications Acetaminophen (Tylenol Tab*) 650 mg PO Q4H PRN PRN Reason: for pain; or Temp >101 F Al Hydrox/Mg Hydrox/Simethicone (Maalox Plus*) 30 ml PO Q4H PRN PRN Reason: INDIGESTION Aripiprazole (Earnest Rice (Fela)) 400 mg IM Q28D [facility] Last Admin: 12/01/17 18:25 Dose: 400 mg - Discharge Plan Discharge Plan: Consider Longer Term Tx
--- NOTE | 2017-12-08 11:36 | PN ---
[facility]: Group Therapy Note - Service Type Service Type: [id number] Group Psychotherapy - Cognitive Behavioral Group Therapy ( CBT):Patient was attentive and participatory in CBT programming this morning, and remained in good behavioral control. Patient expressed positive insights regarding relevant treatment interventions and goals.
--- NOTE | 2017-12-09 11:12 | PN ---
M[facility]: Group Therapy Note - Service Type Service Type: [id number] Group Psychotherapy - Cognitive Behavioral Group Therapy ( CBT):Patient was attentive and participatory in CBT programming this morning, and remained in good behavioral control. Patient expressed positive insights regarding relevant treatment interventions and goals.
--- NOTE | 2017-12-09 14:31 | PN ---
Subjective - Subjective Date of Service: 12/09/17 Service Type: 07908 Hosp care 15 min low complexity Subjective: Raul appears withdrawn today and was not in group when I approached him for follow up care. "I think the discharge plan that I presented to you could work. My parents don't understand. They want me to go to the [facility] because they think I'll starve to at home. They haven't listened to my point of view. You put me back on the shot [Abilify Maintena] and it will be in my system 3 more weeks. I agree to take one more injection after I leave and then I say we see how I do off of it." I spoke with Dr. Alcala, Clinical Director at [facility], who requested updated documentation verifying the need for intermediate level care at a State facility. This clinician endorsed the view that, although Raul is no longer paranoid, dishevelled and acutely disorganized , his insight and judgment are markedly impaired. He has accepted neither of his co-occurring disorders as valid and insists on returning to a treatment plan in the community that led to his rehospitalization here at [facility]. The ACT team and his parents are mutually supportive of transfer to the [facility] for rehabilitative programming and this view was upheld by an Administrative Hearing held by hospital leadership on 12/03/17. Raul was aggressive and agitated during a therapeutic family meeting with his sister and aging parents on 12/02/17 and we could not come to a satisfactory alternative discharge plan. This clinician informed Dr. Alcala of my strong impression that Raul would benefit from further inpatient care targeted towards increasing his insight and adaptive resources. He is a patient that struggles even with basic ADLs such as bathing, grooming, shopping and preparing foods and beverages. With respect to his alcohol consumption, the [facility] ACT team asserts that he began psychiatrically decompensating at least one month prior to his relapse on alcohol. He is refusing referral to an inpatient substance abuse treatment facility, which, in the absence of a police judge's order, we lack the legal authority to compel him towards. Furthermore, we view Raul's alcohol use disorder as a diagnosis that presents secondarily to schizoaffective illness and agree with the statement by [facility] commissioner Cintia Goodwin that, when it comes to co- occurring disorders, "there are no wrong doors to treatment." Raul is informed today that we continue to pursue State Hospitalization, for which beds are not currently available. Objective - Appearance Appearance: Thin Framed Dysmorphic Features: No Hygiene: Normal Grooming: Fairly Well Kept - Behavior Psychomotor Activities: Abnormal-Decreased Exhibits Abnormal Movement: No - Attitude and Relatedness Attitude and Relatedness: Withdrawn Eye Contact: Fair - Speech Quality: Unpressured Latencies: Short Quantity: Copious - Mood Patient's Decription of Mood: "Upset" - Affect Observed Affect: Tense Affect Consistent with: Dysphoria - Thought Process Patient's Thought Process: Coherent, Tangential Thought Content: Yes Paranoid Ideation, No Passive Wish, No Suicidal Planning, No Homicidal Ideation - Sensorium Experiencing Hallucinations: No, Sensorium is Clear Type of Hallucinations: Visual: No, Auditory: No, Command: No - Level of Consciousness Level of Consciousness: Alert Orientation: Yes Intact, Yes Orientated to Time, Yes Orientated to Place, Yes Orientated to Person - Impulse Control Impulse Control: Poor - Insight and Judgement Insight and Judgement: Impaired - Group Participation Particating in Group Activities: No - Medication Management Medication Management Adherence: Yes Assessment - Assessment Merits Inpatient Hospitalization: For Immediate Safety, For Stabilization Inpatient DSM-V Dx: F25.0 Clinical Impression: 37 y.o. single, white male with a history of psychosis and alcohol use disorder , brought to the hospital on legal status by the [facility] troopers following an altercation at his home with representatives of the ACT team. The patient presents as niurka, disheveled and jaundiced with paranoid delusions, is undernourished with low weight and has signs of agitation as well as preoccupation with internal stimuli. Plan - Plan Treatment Plan: Name: David HOPE Birthdate: 1980 [id number] We have resumed aripiprazole Maintena 400mg IM qmonthly (next injection due 12/29). Will continue to pursue State Hospitalization. Continued Medication Management: Start Medication Medications: Current Medications Acetaminophen (Tylenol Tab*) 650 mg PO Q4H PRN PRN Reason: for pain; or Temp >101 F Al Hydrox/Mg Hydrox/Simethicone (Maalox Plus*) 30 ml PO Q4H PRN PRN Reason: INDIGESTION Aripiprazole (Abilify Maintena (Nf)) 400 mg IM Q28D [facility] Last Admin: 12/01/17 18:25 Dose: 400 mg - Discharge Plan Discharge Plan: Consider Longer Term Tx
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
--- NOTE | 2017-12-10 13:29 | PN ---
MHU: Group Therapy Note - Service Type Service Type: [id number] Group Psychotherapy - Cognitive Behavioral Group Therapy ( CBT):Patient was attentive and participatory in CBT programming this morning, and remained in good behavioral control. Patient expressed positive insights regarding relevant treatment interventions and goals.
--- NOTE | 2017-12-11 14:04 | PN ---
MHU: Group Therapy Note - Service Type Service Type: [id number] Group Psychotherapy - Cognitive Behavioral Group Therapy ( CBT):Patient was attentive and participatory in CBT programming this morning, and remained in good behavioral control. Patient expressed positive insights regarding relevant treatment interventions and goals.
--- NOTE | 2017-12-12 15:55 | PN ---
Subjective - Subjective Date of Service: 12/12/17 Subjective: Raul was found in bed, he complains of feeling tired because of staying up late to [place]. He denies SI/HI or A/VH. He denies side effects from prescribed meds. He is aware of transfer to [facility] next week. Objective - Appearance Appearance: Healthy Appearing Dysmorphic Features: No Hygiene: Normal Grooming: Well Kept - Behavior Psychomotor Activities: Normal Exhibits Abnormal Movement: No - Attitude and Relatedness Attitude and Relatedness: Cooperative Eye Contact: Fair - Speech Quality: Unpressured Latencies: Normal Quantity: Terse - Mood Patient's Decription of Mood: "Okay" - Affect Observed Affect: Non-labile Affect Consistent with: Dysphoria - Thought Process Patient's Thought Process: Disorganized Thought Content: No Passive Wish, No Suicidal Planning, No Homicidal Ideation, No Paranoid Ideation - Sensorium Experiencing Hallucinations: No, Sensorium is Clear - Level of Consciousness Level of Consciousness: Alert Orientation: Yes Intact - Impulse Control Impulse Control: Intact - Insight and Judgement Insight and Judgement: Impaired - Group Participation Particating in Group Activities: Yes - Medication Management Medication Management Adherence: Yes Assessment - Assessment Merits Inpatient Hospitalization: Consolidate Improvements, For Discharge Planning Inpatient DSM-V Dx: F25.0 Clinical Impression: Improving in this structured setting. He needs continued inpatient level of care for stabilization. Plan - Plan Treatment Plan: Name: David HOPE Birthdate: 1980 [id number] Medications: Current Medications Acetaminophen (Tylenol Tab*) 650 mg PO Q4H PRN PRN Reason: for pain; or Temp >101 F Al Hydrox/Mg Hydrox/Simethicone (Maalox Plus*) 30 ml PO Q4H PRN PRN Reason: INDIGESTION Aripiprazole (Earnest Rcie (Nf)) 400 mg IM Q28D [facility] Last Admin: 12/01/17 18:25 Dose: 400 mg - Discharge Plan Discharge Plan: Consider Longer Term Tx Outpatient Program: TBD
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
--- NOTE | 2017-12-16 11:47 | PN ---
MHU: Group Therapy Note - Service Type Service Type: [id number] Group Psychotherapy - Cognitive Behavioral Group Therapy ( CBT):Patient was attentive and participatory in CBT programming this morning, and remained in good behavioral control. Patient expressed positive insights regarding relevant treatment interventions and goals.
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
--- NOTE | 2017-12-18 11:54 | PN ---
MHU: Group Therapy Note - Service Type Service Type: [id number] Group Psychotherapy - Cognitive Behavioral Group Therapy ( CBT):Patient was attentive and participatory in CBT programming this morning, and remained in good behavioral control. Patient expressed positive insights regarding relevant treatment interventions and goals.
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
[2017-12-22 09:01] VITALS: BP 110/76
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
--- NOTE | 2017-12-22 14:59 | PN ---
MHU: Group Therapy Note - Service Type Service Type: 21441 Group Psychotherapy - Cognitive Behavioral Group Therapy ( CBT):Patient was attentive and participatory in CBT programming this morning, and remained in good behavioral control. Patient expressed positive insights regarding relevant treatment interventions and goals.
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
== END 2017-12-23 12:15 | DRG 750 ==
LOC: ED 16:14 → BSU 11-26 11:36
PROVIDERS: ADMIT Psychiatry & Neurology Psychiatry; ATTEND Psychiatry & Neurology Psychiatry
PROC: GZHZZZZ Group Psychotherapy (ICD-10-PCS; principal; 2017-11-26)
DX: F25.0 Schizoaffective disorder, bipolar type (principal); K72.90 Hepatic failure, unspecified without coma; E46 Unspecified protein-calorie malnutrition; F22 Delusional disorders; R17 Unspecified jaundice; S00.10XA Contusion of unspecified eyelid and periocular area, initial encounter; S01.81XA Laceration without foreign body of other part of head, initial encounter; S01.111A Laceration without foreign body of right eyelid and periocular area, initial encounter; W19.XXXA Unspecified fall, initial encounter; S00.11XA Contusion of right eyelid and periocular area, initial encounter; Y92.9 Unspecified place or not applicable; Z81.1 Family history of alcohol abuse and dependence; Z87.891 Personal history of nicotine dependence; Z72.89 Other problems related to lifestyle; Z81.8 Family history of other mental and behavioral disorders; Z68.21 Body mass index [BMI] 21.0-21.9, adult
CPT/HCPCS: 36415; 80053; 80061; 80320; 80329; 83036; 84443; 85025; 90847; 90853; 99222; 99231; 99232; 99233; 99238; 99285; A9270-GY; G0480; J0401; J1200; J1630; J2060